=== PATIENT | male | born 1940 | race Caucasian/White ===

== ENCOUNTER 2019-06-07 04:57 | Emergency (ER) | payer MEDICARE, OTHER ==
--- NOTE | 2019-06-07 05:16 | ERPHSYRPT ---
- History of Present Illness Time Seen by Provider: 06/07/19 05:11 Source: patient, family Exam Limitations: no limitations Physician History: pt has 3 day history of pain radiating from his neck down the left arm and several weeks of bilateral neck pain all reproduced by head trning; no trauma; neuro vasc is intact; no CP or sobreath no N/V no diaphoresis no abd pain; Occurred: days ago Method of Injury: unknown Quality: intermittent, sharpness Severity of Pain-Max: moderate Severity of Pain-Current: moderate Extremities Pain Location: shoulder: left, arm: left, other: left (neck) Modifying Factors: Improves With: immobilization, movement Associated Symptoms: neck pain Allergies/Adverse Reactions: etodolac [From Lodine] Allergy (Verified 06/07/19 05:17) Rash diphenhydramine HCl [From Benadryl] Adverse Reaction (Verified 06/07/19 05:17) SEE BUGS Home Medications: Benazepril HCl 10 mg [Lotensin 10 MG] 20 mg PO DAILY 04/11/13 [History] Aspirin 81 gm Chew [Baby Aspirin 81 mg Chew] 81 mg PO DAILY 03/08/14 [ History] Allopurinol 100 mg [Zyloprim 100 mg] 100 mg PO DAILY 06/07/19 [History] Hx Influenza Vaccination/Date Given: (fall 2012) Hx Pneumococcal Vaccination/Date Given: No - Review of Systems Constitutional: No Fever, No Chills Eyes: No Symptoms Ears, Nose, & Throat: No Symptoms Respiratory: No Cough, No Dyspnea Cardiac: No Chest Pain, No Edema, No Syncope Abdominal/Gastrointestinal: No Abdominal Pain, No Nausea, No Vomiting, No Diarrhea Genitourinary Symptoms: No Dysuria Musculoskeletal: No Back Pain, No Neck Pain Skin: No Rash Neurological: No Dizziness, No Focal Weakness, No Sensory Changes Psychological: No Symptoms Endocrine: No Symptoms All Other Systems: Reviewed and Negative - Past Medical History Pertinent Past Medical History: Yes Neurological History: No Pertinent History ENT History: No Pertinent History Cardiac History: Hypertension Respiratory History: No Pertinent History Endocrine Medical History: No Pertinent History Musculoskeletal History: Arthritis GI Medical History: Diverticulosis, Hemorrhoids History: No Pertinent History Psycho-Social History: No Pertinent History Male Reproductive Disorders: No Pertinent History - Past Surgical History Past Surgical History: Yes Neuro Surgical History: No Pertinent History Cardiac: Cardiac Catheterization Respiratory: No Pertinent History Gastrointestinal: Appendectomy, Cholecystectomy Genitourinary: No Pertinent History Musculoskeletal: No Pertinent History Male Surgical History: No Pertinent History Other Surgical History: TOOTH EXTRACTION - Social History Smoking Status: Never smoker Exposure to second hand smoke: No Drug Use: none Patient Lives Alone: No - Nursing Vital Signs Nursing Vital Signs: Initial Vital Signs Temperature 97.4 F 06/07/19 05:02 Pulse Rate 68 06/07/19 05:02 Respiratory Rate 16 06/07/19 05:02 Blood Pressure 150/77 06/07/19 05:02 O2 Sat by Pulse Oximetry 97 06/07/19 05:02 Pain Scale Pain Intensity 7 - Physical Exam General Appearance: alert Eyes, Ears, Nose, Throat Exam: moist mucous membranes Neck Exam: non-tender, supple Cardiovascular/Respiratory Exam: chest non-tender, normal breath sounds, regular rate/rhythm, no respiratory distress Abdominal Exam: non-tender, No guarding Back Exam: normal inspection, decreased range of motion, muscle spasm, other ( neck pain radiating to reporduce left arm pains with motion of newck), No vertebral tenderness Shoulder Exam: normal inspection, non-tender, no evidence of injury, normal ROM Elbow/Forearm Exam: normal inspection, non-tender, no evidence of injury, normal ROM Wrist Exam: normal inspection, non-tender, no evidence of injury, normal ROM Hand Exam: normal inspection, non-tender, no evidence of injury, normal ROM DTR - Upper Extremity Exam: bicep (R): 2+, bicep (L): 2+, tricep (R): 2+, tricep (L): 2+ Neuro/Tendon Exam: normal sensation, normal motor functions Mental Status Exam: alert, oriented x 3, cooperative Skin Exam: normal color, warm, dry - Course Nursing assessment & vital signs reviewed: Yes EKG Interpreted by Me: Left [place] Deviation, NORMAL INTERVALS, Non-specific ST Changes - Radiology Exams Chest X-ray Interpretation: Reviewed by me, Other (calcified aorta) Ordered Tests: Active Orders 24 hr Category Date Time Status CHEST 1 VIEW (PORTABLE) Stat Exams 06/07/19 05:17 Taken CBC W DIFF Stat Lab 06/07/19 05:16 Ordered CMP Stat Lab 06/07/19 05:16 Ordered NT PRO BNP Stat Lab 06/07/19 05:16 Ordered TROPONIN Q3H Lab 06/07/19 05:30 Ordered TROPONIN Q3H Lab 06/07/19 08:30 Ordered TROPONIN Q3H Lab 06/07/19 11:30 Ordered TROPONIN Q3H Lab 06/07/19 14:30 Ordered TROPONIN Q3H Lab 06/07/19 17:30 Ordered Medication Summary Discontinued Medications Generic Name Dose Route Start Last Admin Trade Name Freq PRN Reason Stop Dose Admin Hydrocodone Bitart/Acetaminophen 1 tab 06/07/19 05:18 06/07/19 05:37 [place] 5/325 Mg PO 06/07/19 05:19 1 tab STAT ONE Administration Hydrocodone Bitart/Acetaminophen Confirm 06/07/19 05:32 [place] 5/325 Mg Administered 06/07/19 05:33 Dose 1 tab .ROUTE .STK-MED ONE Orphenadrine Citrate 60 mg 06/07/19 05:24 06/07/19 05:39 Norflex 60 Mg/2 Ml IM 06/07/19 05:25 60 mg STAT ONE Administration Orphenadrine Citrate Confirm 06/07/19 05:32 Norflex 60 Mg/2 Ml Administered 06/07/19 05:33 Dose 60 mg .ROUTE .STK-MED ONE Lab/Rad Data: Laboratory Result Diagrams 06/07/19 05:16 06/07/19 05:16 Laboratory Results 06/07/19 06/07/19 06/07/19 Range/Units 05:30 05:16 05:16 WBC 7.1 (4.0-10.5) K/mm3 RBC 5.33 (4.1-5.6) M/mm3 Hgb 17.4 (12.5-18.0) gm/dl Hct 51.1 H (42-50) % MCV 95.9 (78-100) fl MCH 32.6 H (26-32) pg MCHC 34.1 (32-36) g/dl RDW 14.2 H (11.5-14.0) % Plt Count 263 (150-450) K/mm3 MPV 9.5 (6-9.5) fl Gran % 37.1 (36.0-66.0) % Eos # (Auto) 0.20 (0-0.5) Absolute Lymphs (auto) 3.43 (1.0-4.6) Absolute Monos (auto) 0.79 (0.0-1.3) Lymphocytes % 48.4 H (24.0-44.0) % Monocytes % 11.1 (0.0-12.0) % Eosinophils % 2.8 (0.00-5.0) % Basophils % 0.6 (0.0-0.4) % Absolute Granulocytes 2.63 (1.4-6.9) Basophils # 0.04 (0-0.4) Sodium 137 (137-145) mmol/L Potassium 4.2 (3.5-5.1) mmol/L Chloride 103 (98-107) mmol/L Carbon Dioxide 23 (22-30) mmol/L Anion Gap 14.6 (5-15) MEQ/L BUN 9 (9-20) mg/dL Creatinine 0.83 (0.66-1.25) mg/dL Estimated GFR > 60.0 ML/MIN Glucose 129 H (74-106) mg/dL Calcium 9.0 (8.4-10.2) mg/dL Total Bilirubin 0.80 (0.2-1.3) mg/dL AST 33 (17-59) U/L ALT 20 (0-50) U/L Alkaline Phosphatase 70 (38-126) U/L Troponin I < 0.012 (0.000-0.034) ng/mL NT-Pro-B Natriuret Pep 53.8 (0-1800) pg/mL Serum Total Protein 7.0 (6.3-8.2) g/dL Albumin 4.0 (3.5-5.0) g/dL - Progress Progress: improved, re-examined Progress Note: 06/07/19 06:26 symptoms are relieved by tx , and pt expresses that he is ready for home Counseled pt/family regarding: lab results, diagnosis, need for follow-up - Departure Departure Disposition: Home 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
[2019-06-07] MEDS ORDERED: NORCO 5/325 MG PO ONE (05:18)
[2019-06-07] MEDS ORDERED: Norflex 60 MG/2 ML IM ONE (05:24)
[2019-06-07] MEDS ORDERED: Norflex 60 MG/2 ML ONE (05:32)
[2019-06-07] MEDS ORDERED: NORCO 5/325 MG ONE (05:32)
[2019-06-07 05:35] LABS: BASOPHIL % 0.6 % (0.0-0.4); Basophil (Absolute #) 0.04 (0-0.4); Eosinophil % 2.8 % (0.00-5.0); Granulocyte Absolute (ANC) 2.63 (1.4-6.9); Granulocytes % 37.1 % (36.0-66.0); Hematocrit 51.1 % (42-50); Hemoglobin 17.4 gm/dl (12.5-18.0); Lymphocyte (Absolute #) 3.43 (1.0-4.6); Lymphocytes % 48.4 % (24.0-44.0); Mean Cell Volume 95.9 fl (78-100); Mean Corpuscular Hemoglobin 32.6 pg (26-32); Mean Corpuscular Hgb Concent. 34.1 g/dl (32-36); Mean Platelet Volume 9.5 fl (6-9.5); Monocyte (Absolute #) 0.79 (0.0-1.3); Monocytes % 11.1 % (0.0-12.0); Platelet Count 263 K/mm3 (150-450); Red Blood Count 5.33 M/mm3 (4.1-5.6); Red Cell Distribution Width 14.2 % (11.5-14.0); White Blood Count 7.1 K/mm3 (4.0-10.5)
[2019-06-07 05:56] LABS: ALKALINE PHOSPHATASE 70 U/L (38-126); ANION GAP 14.6 MEQ/L (5-15); BLOOD UREA NITROGEN 9 mg/dL (9-20); CHLORIDE 103 mmol/L (98-107); Carbon Dioxide 23 mmol/L (22-30); Creatinine 1 0.83 mg/dL (0.66-1.25); Glucose 129 mg/dL (74-106); NT PRO BNP 53.8 pg/mL (0-1800); Potassium 4.2 mmol/L (3.5-5.1); SGOT/AST 33 U/L (17-59); SGPT/ALT 20 U/L (0-50); SODIUM 137 mmol/L (137-145)
[2019-06-07 06:37] VITALS: BP 139/73; PULSE 65; O2SAT 99
--- NOTE | 2019-06-07 07:14 | XRAY ---
Indication: Left shoulder/neck/arm pain. Comparison: May 15, 2018. Portable chest again demonstrates right base discoid atelectasis/scarring. Remaining lungs clear. Heart is not enlarged. Descending aorta remains arteriosclerotic and tortuous. Bony thorax intact again with mild degenerative changes. Impression: Stable nonacute chest with chronic features.
== END 2019-06-07 06:39 | disposition home or self-care (01) ==
LOC: ED 04:57
DX: M46.92 Unspecified inflammatory spondylopathy, cervical region (principal); M79.2 Neuralgia and neuritis, unspecified; I10 Essential (primary) hypertension
CPT/HCPCS: 36415; 71045; 80053; 83880; 84484; 85025; 96372; 99284; J2360; A9270-GY

== ENCOUNTER 2020-11-10 05:53 | Emergency (ER) | payer MEDICARE, OTHER ==
[2020-11-10] MEDS ORDERED: BABY ASPIRIN 81 MG CHEW PO ONE (06:27)
[2020-11-10 06:47] LABS: Absolute Neutrophil Ct (ANC) 3.84 (1.4-6.9); BASOPHIL % 0.7 % (0.0-0.4); Basophil (Absolute #) 0.05 (0-0.4); Eosinophil % 4.8 % (0.00-5.0); Eosinophil (Absolute #) 0.35 (0-0.5); Hematocrit 45.8 % (42-50); Hemoglobin 15.1 gm/dl (12.5-18.0); Lymphocyte (Absolute #) 2.29 (1.0-4.6); Lymphocytes % 31.3 % (24.0-44.0); Mean Cell Volume 94.8 fl (78-100); Mean Corpuscular Hemoglobin 31.3 pg (26-32); Mean Platelet Volume 9.6 fl (7.5-11.0); Monocyte (Absolute #) 0.78 (0.0-1.3); Monocytes % 10.7 % (0.0-12.0); Neutrophil % 52.5 % (36.0-66.0); Platelet Count 269 K/mm3 (150-450); Red Blood Count 4.83 M/mm3 (4.1-5.6); Red Cell Distribution Width 13.7 % (11.5-14.0); White Blood Count 7.3 K/mm3 (4.0-10.5)
--- NOTE | 2020-11-10 07:05 | ERPHSYRPT ---
<NATASHA HARRINGTON - Last Filed: 11/10/20 07:00> - History of Present Illness Time Seen by Provider: 11/10/20 06:27 Historian: patient Exam Limitations: no limitations Patient Subjective Stated Complaint: pt c/o chest pain and fall at home Triage Nursing Assessment: pt was asleep and had chest pain on the right side which woke him up, pain radiated to rt jaw and rt shoulder blade. Pt became diaphoretic. Pt got up to take 1 sl ntg and then fell on the floor. Pt denies any injuries from the fall and denies any loc. Pt rated chest pain a 3 when it occured, but was pain free upon arrival to ER. pt in SR. Lungs clear, heart tones reg. Physician History: 80 years old male presented in the ER with chief complaint of chest pain. Patient report he woke up around 4 AM today with chest pain on the right, radiating to right jaw, moderate intensity, took 1 nitro and started to feel dizzy lightheaded but his pain is improving on presentation. Denies any shortness of breath fever chills or cough. Does have intermittent episodes similar to this in the past. No chest pain work-up done in the recent past. Timing/Duration: hour(s) (2), sudden, improved Activities at Onset: rest Quality: aching Location: substernal Severity of Pain-Max: moderate Severity of Pain-Current: mild Modifying Factors: Improves With: nitroglycerin Associated Symptoms: fatigue, dizziness Prior Chest Pain/Cardiac Workup: no prior cardiac workup Nitro Today/Relief: no nitro taken today Aspirin Treatment Today: 81 mg x 4 Allergies/Adverse Reactions: etodolac [From Lodine] Allergy (Verified 11/10/20 06:09) Rash diphenhydramine HCl [From Benadryl] Adverse Reaction (Verified 11/10/20 06:09) SEE BUGS Home Medications: Benazepril HCl 10 mg [Lotensin 10 MG] 20 mg PO DAILY 04/11/13 [History] Allopurinol 100 mg [Zyloprim 100 mg] 100 mg PO DAILY 06/07/19 [History] Nitroglycerin 0.4 mg Tablet [Nitrostat 0.4 MG Tablet] 0.4 mg SL DAILY PRN PRN 11/10/20 [History] Omeprazole 20 mg PO DAILY 11/10/20 [History] Hx Tetanus, Diphtheria Vaccination/Date Given: Yes Hx Influenza Vaccination/Date Given: Yes Hx Pneumococcal Vaccination/Date Given: Yes Immunizations Up to Date: Yes Travel Risk - International Travel Have you traveled outside of the country in past 3 weeks: No - Coronavirus Screening Are you exhibiting any of the following symptoms?: No Close contact with a COVID-19 positive Pt in past 14-21 Days: No - Review of Systems Constitutional: No Symptoms Eyes: No Symptoms Ears, Nose, & Throat: No Symptoms Respiratory: No Symptoms Cardiac: Chest Pain Abdominal/Gastrointestinal: No Symptoms Genitourinary Symptoms: No Symptoms Musculoskeletal: No Symptoms Skin: No Symptoms Neurological: No Symptoms Psychological: No Symptoms Endocrine: No Symptoms Hematologic/Lymphatic: No Symptoms Immunological/Allergic: No Symptoms - Past Medical History Pertinent Past Medical History: Yes Neurological History: No Pertinent History ENT History: No Pertinent History Cardiac History: Hypertension Respiratory History: No Pertinent History Endocrine Medical History: No Pertinent History Musculoskeletal History: Arthritis GI Medical History: Diverticulosis, GERD, Gallbladder Disease, Hemorrhoids History: No Pertinent History Psycho-Social History: No Pertinent History Male Reproductive Disorders: No Pertinent History - Past Surgical History Past Surgical History: Yes Neuro Surgical History: No Pertinent History Cardiac: Cardiac Catheterization Respiratory: No Pertinent History Gastrointestinal: Appendectomy, Cholecystectomy Genitourinary: No Pertinent History Musculoskeletal: No Pertinent History Male Surgical History: No Pertinent History Other Surgical History: TOOTH EXTRACTION - Social History Smoking Status: Former smoker Exposure to second hand smoke: No Drug Use: none Patient Lives Alone: No - Physical Exam General Appearance: no apparent distress, alert Eye Exam: PERRL/EOMI, eyes nml inspection (Dictated better than here but) Ears, Nose, Throat Exam: normal ENT inspection, TMs normal, pharynx normal Neck Exam: normal inspection, non-tender, supple, full range of motion Respiratory Exam: normal breath sounds, lungs clear Cardiovascular Exam: regular rate/rhythm, normal heart sounds Gastrointestinal/Abdomen Exam: soft, normal bowel sounds Back Exam: normal inspection, normal range of motion Extremity Exam: normal inspection Neurologic Exam: alert, oriented x 3, cooperative, tanner rotary drum continuous process II-XII nml as tested, normal mood/affect Skin Exam: normal color SpO2 Interpretation: normal SpO2: 98 O2 Delivery: Room Air - Progress Progress Note: 11/10/20 07:06 Work-up is pending, care is transferred to Dr. Yoon at shift change - Departure Clinical Impression: Chest pain Condition: Stable Referrals: HENRY DORAN [Primary Care Provider] - Instructions: Angina (DC), Chest Pain (DC) Additional Instructions: Dr. Doran tomorrow 11/11/20 9:00AM Return to ER for for chest pain or shortness of breath <WILFREDO PADGETT - Last Filed: 11/10/20 12:45> - Nursing Vital Signs Nursing Vital Signs: Initial Vital Signs Temperature 97.5 F 11/10/20 05:57 Pulse Rate 64 11/10/20 05:57 Respiratory Rate 18 11/10/20 05:57 Blood Pressure 127/72 11/10/20 05:57 O2 Sat by Pulse Oximetry 98 11/10/20 05:57 Pain Scale Pain Intensity 0 - Course EKG Interpreted by Me: RATE (Sinus linh/LAFB/Low voltage-Poor R wave progression/Normal QT-QTc/IRBBB) Ordered Tests: Active Orders 24 hr Category Date Time Status Director Call Center Sales STAT Care 11/10/20 06:28 Completed EKG-ER Only STAT Care 11/10/20 06:27 Completed IV Insertion STAT Care 11/10/20 06:27 Completed CHEST 1 VIEW (PORTABLE) Stat Exams 11/10/20 06:28 Completed CBC W DIFF Stat Lab 11/10/20 06:40 Completed CMP Stat Lab 11/10/20 06:40 Completed NT PRO BNP Stat Lab 11/10/20 06:40 Completed TROPONIN Q3H Lab 11/10/20 06:40 Completed TROPONIN Q3H Lab 11/10/20 09:30 Completed Medication Summary Discontinued Medications Generic Name Dose Route Start Last Admin Trade Name Freq PRN Reason Stop Dose Admin Aspirin 324 mg 11/10/20 06:27 11/10/20 06:53 Baby Aspirin 81 Mg Chew PO 11/10/20 06:28 Not Given STAT ONE Lab/Rad Data: Laboratory Result Diagrams 11/10/20 06:40 11/10/20 06:40 Laboratory Results 11/10/20 11/10/20 11/10/20 Range/Units 09:30 06:40 06:40 WBC (4.0-10.5) K/mm3 RBC (4.1-5.6) M/mm3 Hgb (12.5-18.0) gm/dl Hct (42-50) % MCV (78-100) fl MCH (26-32) pg MCHC (32-36) g/dl RDW (11.5-14.0) % Plt Count (150-450) K/mm3 MPV (7.5-11.0) fl Gran % (36.0-66.0) % Eos # (Auto) (0-0.5) Absolute Lymphs (auto) (1.0-4.6) Absolute Monos (auto) (0.0-1.3) Lymphocytes % (24.0-44.0) % Monocytes % (0.0-12.0) % Eosinophils % (0.00-5.0) % Basophils % (0.0-0.4) % Absolute Granulocytes (1.4-6.9) Basophils # (0-0.4) Sodium 135 L (137-145) mmol/L Potassium 4.4 (3.5-5.1) mmol/L Chloride 103 (98-107) mmol/L Carbon Dioxide 26 (22-30) mmol/L Anion Gap 11.0 (5-15) MEQ/L BUN 10 (9-20) mg/dL Creatinine 1.02 (0.66-1.25) mg/dL Estimated GFR > 60.0 ML/MIN Glucose 151 H (74-106) mg/dL Calcium 8.8 (8.4-10.2) mg/dL Total Bilirubin 0.60 (0.2-1.3) mg/dL AST 25 (17-59) U/L ALT 20 (0-50) U/L Alkaline Phosphatase 72 (38-126) U/L Troponin I < 0.012 < 0.012 (0.000-0.034) ng/mL NT-Pro-B Natriuret Pep 43.4 (0-1800) pg/mL Serum Total Protein 6.2 L (6.3-8.2) g/dL Albumin 3.5 (3.5-5.0) g/dL 11/10/20 Range/Units 06:40 WBC 7.3 (4.0-10.5) K/mm3 RBC 4.83 (4.1-5.6) M/mm3 Hgb 15.1 (12.5-18.0) gm/dl Hct 45.8 (42-50) % MCV 94.8 (78-100) fl MCH 31.3 (26-32) pg MCHC 33.0 (32-36) g/dl RDW 13.7 (11.5-14.0) % Plt Count 269 (150-450) K/mm3 MPV 9.6 (7.5-11.0) fl Gran % 52.5 (36.0-66.0) % Eos # (Auto) 0.35 (0-0.5) Absolute Lymphs (auto) 2.29 (1.0-4.6) Absolute Monos (auto) 0.78 (0.0-1.3) Lymphocytes % 31.3 (24.0-44.0) % Monocytes % 10.7 (0.0-12.0) % Eosinophils % 4.8 (0.00-5.0) % Basophils % 0.7 (0.0-0.4) % Absolute Granulocytes 3.84 (1.4-6.9) Basophils # 0.05 (0-0.4) Sodium (137-145) mmol/L Potassium (3.5-5.1) mmol/L Chloride (98-107) mmol/L Carbon Dioxide (22-30) mmol/L Anion Gap (5-15) MEQ/L BUN (9-20) mg/dL Creatinine (0.66-1.25) mg/dL Estimated GFR ML/MIN Glucose (74-106) mg/dL Calcium (8.4-10.2) mg/dL Total Bilirubin (0.2-1.3) mg/dL AST (17-59) U/L ALT (0-50) U/L Alkaline Phosphatase (38-126) U/L Troponin I (0.000-0.034) ng/mL NT-Pro-B Natriuret Pep (0-1800) pg/mL Serum Total Protein (6.3-8.2) g/dL Albumin (3.5-5.0) g/dL - Progress Progress: improved Progress Note: 11/10/20 07:41 Assumed care at 7:00AM of 80 yo wm w R sub-sternal chest pain w radiation to neck which woke pt up at 4:30 AM. Pain accompanied by diaphoresis/N/dyspnea/dizziness. Pt has a h/o HTN/tobacco use >20yrs in the past. DM/hyperlipidemia were denied. He denies CAD/NC/Cath/stents/CABG. Pt alert and oriented x3/LLungs CTA/Heart RRRwo M/Abdomen soft, nttp/Initial trop neg/EKG sinus linh, low voltage,LAFB, IRBBB, Normal QT-QTc. Pt took 1 SL NTG at home w relief. He was given 324 po ASA in ER. Pain is 0 at this time. 11/10/20 10:55 Pt w neg trop x2/no acute EKG changes/No chest pain during ER stay/Pt refuses inpt-obs stay for workup, risks explained/Spoke w Dr. Doran, will see pt at 9:00AM 11/11/20. Pt ok w plan. Discussed with : Michelle Counseled pt/family regarding: lab results, diagnosis, need for follow-up, rad results - Departure Departure Disposition: Home Critical Care Time: No
[2020-11-10 07:18] LABS: ALBUMIN 3.5 g/dL (3.5-5.0); ALKALINE PHOSPHATASE 72 U/L (38-126); BLOOD UREA NITROGEN 10 mg/dL (9-20); CHLORIDE 103 mmol/L (98-107); Calcium 8.8 mg/dL (8.4-10.2); Carbon Dioxide 26 mmol/L (22-30); Creatinine 1 1.02 mg/dL (0.66-1.25); EST GLOMERULAR FILTRATION RATE > 60.0 ML/MIN; Glucose 151 mg/dL (74-106); NT PRO BNP 43.4 pg/mL (0-1800); Potassium 4.4 mmol/L (3.5-5.1); SGOT/AST 25 U/L (17-59); SGPT/ALT 20 U/L (0-50); SODIUM 135 mmol/L (137-145); Total Protein 6.2 g/dL (6.3-8.2)
--- NOTE | 2020-11-10 09:21 | XRAY ---
Indication: Chest pain. Comparison: June 07, 2019. Portable chest unchanged again demonstrating minimal right base discoid atelectasis/scarring. Remaining heart and lungs unremarkable again with incidental tortuous descending aorta. Bony thorax intact with mild degenerative changes. Impression: Continued nonacute chest with chronic features.
[2020-11-10 10:09] VITALS: BP 128/73; PULSE 67; O2SAT 98
== END 2020-11-10 11:02 | disposition home or self-care (01) ==
LOC: ED 05:53
DX: R07.89 Other chest pain (principal); R53.83 Other fatigue; Z79.899 Other long term (current) drug therapy; I10 Essential (primary) hypertension
CPT/HCPCS: 36000; 36415; 71045; 80053; 83880; 84484; 85025; 93005; 93041; 99284

== ENCOUNTER 2023-03-14 09:07 | Emergency (ER) | payer MEDICARE, OTHER ==
[2023-03-14 09:28] VITALS: BP 112/79; PULSE 88; O2SAT 96
--- NOTE | 2023-03-14 09:52 | ERPHSYRPT ---
- History of Present Illness Time Seen by Provider: 03/14/23 09:49 Source: patient Patient Subjective Stated Complaint: Pt had been constipated and he took 3 Ducolax and he went to the restroom and had a bowel movement and then went out on the tractor and states that "something is hanging out of his back end that isn't supposed to be", pt states that it has been this way prior to this for several days Triage Nursing Assessment: Pt brought to the ER by his son, ina magana, rates pain/pressure as 3/10, pt has had the feeling that something was hanging out of his rectum for several days but now it is uncomfortable for him to sit, pulses normal, skin n/w/d, doesn't appear to be in any distress Physician History: Patient is an 82-year-old male presents to our ED for evaluation and treatment of rectal pain. Patient has a history of external hemorrhoids. Patient states he has been constipated. Patient unable to have a bowel movement took 3 Dulcolax. Patient went to have a bowel movement. Patient passed stool but as he was bearing down he felt "something come out of his rectum". Patient has some rectal pain. No trauma. No fever. No abdominal pain. No vomiting. Symptoms are mild to moderate in intensity. Pain rated 3 out of 10. Patient otherwise feels well. Son at bedside. They voiced no other complaints or concerns at this time. Portions of this note were created with voice recognition technology. There may be grammatical, spelling, punctuation or sound alike errors Timing/Duration: today Severity: mild Modifying Factors: Improves With: nothing Associated Symptoms: denies symptoms Allergies/Adverse Reactions: etodolac [From Lodine] Allergy (Verified 01/29/23 12:36) Rash diphenhydramine HCl [From Benadryl] Adverse Reaction (Verified 03/14/23 09:28) SEE BUGS Home Medications: Benazepril HCl [Lotensin 10 MG] 5 mg PO DAILY 04/11/13 [History] Allopurinol 100 mg [Zyloprim 100 mg] 100 mg PO DAILY 06/07/19 [History] Nitroglycerin 0.4 mg Tablet [Nitrostat 0.4 MG Tablet] 0.4 mg SL DAILY PRN PRN 11/10/20 [History] Omeprazole 20 mg PO DAILY 11/10/20 [History] Atorvastatin Calcium [Lipitor] 40 mg PO DAILY 01/22/23 [History] Isosorbide Mononitrate [Isosorbide Mononitrate ER] 30 mg PO DAILY 01/22/23 [History] Metformin HCl 500 mg [Glucophage 500 MG] 500 mg PO BIDWM 01/22/23 [History] Thiamine Mononitrate (Vit B1) [Vitamin B-1] 100 mg PO DAILY 01/22/23 [History] Allopurinol 300 mg [Zyloprim 300 mg] 300 mg PO DAILY 01/29/23 [History] Duloxetine HCl 20 mg PO DAILY 01/29/23 [History] Hx Tetanus, Diphtheria Vaccination/Date Given: Yes Hx Influenza Vaccination/Date Given: Yes Hx Pneumococcal Vaccination/Date Given: Yes Travel Risk - International Travel Have you traveled outside of the country in past 3 weeks: No - Coronavirus Screening Are you exhibiting any of the following symptoms?: No Close contact with a COVID-19 positive Pt in past 14-21 Days: No - Vaccine Status Have you recieved a Covid-19 vaccination: Yes Marketing Production Manager: [employer] - Vaccination Dates Date of 2cond Vaccination (if applicable): 2020 - Review of Systems Constitutional: No Symptoms, No Fever, No Chills Eyes: No Symptoms Ears, Nose, & Throat: No Symptoms Respiratory: No Symptoms, No Cough, No Dyspnea Cardiac: No Symptoms, No Chest Pain, No Edema, No Syncope Abdominal/Gastrointestinal: No Symptoms, No Abdominal Pain, No Nausea, No Vomiting, No Diarrhea Genitourinary Symptoms: No Symptoms, No Dysuria Musculoskeletal: No Symptoms, No Back Pain, No Neck Pain Skin: No Symptoms, No Rash Neurological: No Symptoms, No Dizziness, No Focal Weakness, No Sensory Changes Psychological: No Symptoms Endocrine: No Symptoms Hematologic/Lymphatic: No Symptoms Immunological/Allergic: No Symptoms All Other Systems: Reviewed and Negative - Past Medical History Pertinent Past Medical History: Yes Neurological History: No Pertinent History ENT History: No Pertinent History Cardiac History: Angina, High Cholesterol, Hypertension Respiratory History: No Pertinent History Endocrine Medical History: Diabetes Type II Musculoskeletal History: Arthritis GI Medical History: Diverticulosis, GERD, Gallbladder Disease, Hemorrhoids History: No Pertinent History Psycho-Social History: No Pertinent History Male Reproductive Disorders: No Pertinent History - Past Surgical History Past Surgical History: Yes Neuro Surgical History: No Pertinent History Cardiac: Cardiac Catheterization Respiratory: No Pertinent History Gastrointestinal: Appendectomy, Cholecystectomy Genitourinary: No Pertinent History Musculoskeletal: No Pertinent History Male Surgical History: No Pertinent History Other Surgical History: TOOTH EXTRACTION - Social History Smoking Status: Former smoker Exposure to second hand smoke: No Drug Use: none Patient Lives Alone: Yes - Nursing Vital Signs Nursing Vital Signs: Initial Vital Signs Temperature 96.8 F 03/14/23 09:14 Pulse Rate 88 03/14/23 09:14 Blood Pressure 112/79 03/14/23 09:14 O2 Sat by Pulse Oximetry 96 03/14/23 09:14 Pain Scale Pain Intensity 3 - Physical Exam General Appearance: no apparent distress, alert Eye Exam: PERRL/EOMI, eyes nml inspection Ears, Nose, Throat Exam: normal ENT inspection, moist mucous membranes Neck Exam: normal inspection, non-tender, full range of motion Respiratory Exam: airway intact, No respiratory distress, No stridor Cardiovascular Exam: regular rate/rhythm Gastrointestinal/Abdomen Exam: soft, normal bowel sounds, No tenderness, No mass Rectal Exam: other (Rectal prolapse, external hemorrhoid) Back Exam: normal inspection, normal range of motion, No CVA tenderness, No vertebral tenderness Extremity Exam: normal inspection, normal range of motion, pelvis stable Neurologic Exam: alert, oriented x 3, cooperative, normal mood/affect, sensation nml, No motor deficits Skin Exam: normal color, warm, dry, No rash Lymphatic Exam: No adenopathy SpO2 Interpretation: normal SpO2: 96 O2 Delivery: Room Air - Course Nursing assessment & vital signs reviewed: Yes - Progress Progress: improved Progress Note: Patient is a 82-year-old male with a history of constipation presents to our ED with a rectal prolapse and external hemorrhoid. The rectal prolapse was reduced. Lubricating jelly was used to reduce the rectal prolapse. Patient tolerated procedure well. No complications. Pain improved. Patient resting comfortably. Patient referred to general surgery for follow-up. We contacted the [facility] office. We scheduled an appointment for March 18 at 10:10 AM. Address is [address] [place] [address] Patient agrees to follow-up as planned. Complexity of problem addressed is low, acute uncomplicated Critical care time Complexity of data reviewed and analyzed is none. No specialized testing ordered. Diagnosis made based on history and physical examination. Risk of complication and or risk morbidity/mortality is minimal. Rectal prolapse manually reduced. Patient tolerated procedure well. Patient declined medication. No medication provided otherwise. No social determinants of health present to impede follow-up. Patient has good family support. Patient at bedside. We discussed modifications in diet to minimize constipation. Increase fiber, appropriate laxative use. vital stable. Discharge diagnosis is rectal prolapse and sternal hemorrhoid. Portions of this note were created with voice recognition technology. There may be grammatical, spelling, punctuation or sound alike errors 03/14/23 09:54 Counseled pt/family regarding: diagnosis, need for follow-up - Departure Departure Disposition: Home Clinical Impression: Rectal prolapse, External hemorrhoid Condition: Stable Critical Care Time: No Referrals: HENRY DORAN [Primary Care Provider] - Follow up/PCP as directed [facility] [ACTIVE STAFF] - Follow up/PCP as directed Additional Instructions: Discharge/Care Plan EFRA BILLINGS was seen on 03/14/23 in the Emergency Room. The patient was counseled regarding Diagnosis,Lab results, Imaging studies, need for follow up and when to return to the Emergency Room. Prescriptions given: Discharge Note I have spoken with the patient and/or caregivers. I have explained the patient's condition, diagnosis and treatment plan based on the information available to me at this time. I have answered the patient's and/or caregiver's questions and addressed any concerns. The patient and/or caregivers have as good understanding of the patient's diagnosis, condition and treatment plan as can be expected at this point. The vital signs have been stable. The patient's condition is stable and appropriate for discharge from the emergency department. The patient will pursue further outpatient evaluation with the primary care physician or other designated or consulting physician as outlined in the discharge instructions. The patient and/or caregivers are agreeable to this plan of care and follow-up instructions have been explained in detail. The patient and/or caregivers have received these instruction. The patient/and or caregivers are aware that any significant change in condition or worsening of symptoms should prompt an immediate return to this or the closest emergency department or call 911.
== END 2023-03-14 09:56 | disposition home or self-care (01) ==
LOC: ED 09:07
DX: K62.3 Rectal prolapse (principal); K64.4 Residual hemorrhoidal skin tags; K62.89 Other specified diseases of anus and rectum; E78.5 Hyperlipidemia, unspecified; I10 Essential (primary) hypertension; E11.9 Type 2 diabetes mellitus without complications; Z79.84 Long term (current) use of oral hypoglycemic drugs; Z79.899 Other long term (current) drug therapy
CPT/HCPCS: 99281

== ENCOUNTER 2023-08-25 14:58 | Emergency (ER) | payer MEDICARE, OTHER ==
[2023-08-25] MEDS ORDERED: BABY ASPIRIN 81 MG CHEW PO ONE (15:15)
--- NOTE | 2023-08-25 15:15 | ERPHSYRPT ---
- History of Present Illness Time Seen by Provider: 08/25/23 15:00 Source: patient, family Exam Limitations: clinical condition Physician History: The patient presented with a sudden onset of confusion, which was noticed by a family member when the patient had difficulty starting their vehicle. The patient reported no other deficits besides the confusion. 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 The patient has had a recent evaluation of their heart, which showed no issues. The patient mentioned experiencing a headache that started the night before the confusion began. They did not report any weakness, trouble walking, or trouble talking. The patient denied any issues with urination, such as burning or changes in frequency, and has no known history of urinary tract infections. They also denied any abdominal or chest pain and did not report any difficulty breathing. In summary, the patient experienced a sudden onset of confusion accompanied by a headache that started the previous night. The patient has a history of possible mini-strokes but no other significant medical issues. The patient denied any other symptoms or deficits besides the confusion and headache. Timing/Duration: today Severity: mild Character of Deficits: other (confusion) Deficits: no difficulties Baseline/Normal Cognition: alert oriented x 3 Current Cognition: alert oriented x 3 Baseline Gait: walks w/o assistance Associated Symptoms: confusion, headache, No fatigue, No fever, No chills, No loss of consciousness, No nausea, No vomiting, No weakness, No numbness/tingling in legs/feet, No paresthesia, No ringing in ears, No seizures, No slurred speech, No trouble walking, No vision changes, No chest pain Allergies/Adverse Reactions: etodolac [From Lodine] Allergy (Verified 08/25/23 15:25) Rash diphenhydramine HCl [From Benadryl] Adverse Reaction (Verified 08/25/23 15:25) SEE BUGS Home Medications: Benazepril HCl [Lotensin 10 MG] 5 mg PO DAILY 04/11/13 [History] Allopurinol 100 mg [Zyloprim 100 mg] 100 mg PO DAILY 06/07/19 [History] Omeprazole 20 mg PO DAILY 11/10/20 [History] Isosorbide Mononitrate [Isosorbide Mononitrate ER] 30 mg PO DAILY 01/22/23 [History] Duloxetine HCl 30 mg PO DAILY 01/29/23 [History] Aspirin 81 gm Chew [Baby Aspirin 81 mg Chew] 81 mg PO DAILY 08/25/23 [History] Clopidogrel Bisulfate [Clopidogrel] 75 mg PO DAILY 08/25/23 [History] Hx Tetanus, Diphtheria Vaccination/Date Given: Yes Hx Influenza Vaccination/Date Given: Yes Hx Pneumococcal Vaccination/Date Given: Yes Travel Risk - Vaccine Status Have you recieved a Covid-19 vaccination: Yes Elderly Companion: [employer] - Vaccination Dates Date of 2cond Vaccination (if applicable): 2020 - Review of Systems All Other Systems: Reviewed and Negative (As per HPI) - Past Medical History Pertinent Past Medical History: Yes Neurological History: Stroke, TIA, Other ENT History: No Pertinent History Cardiac History: Other Respiratory History: No Pertinent History Endocrine Medical History: No Pertinent History Musculoskeletal History: Osteoarthritis GI Medical History: Diverticulosis, GERD, Gallbladder Disease, Hemorrhoids History: No Pertinent History Psycho-Social History: No Pertinent History Male Reproductive Disorders: No Pertinent History Other Medical History: CHAMBERS AT TIMES, HAS A HEART DOCTOR. - Past Surgical History Past Surgical History: Yes Neuro Surgical History: No Pertinent History Cardiac: Cardiac Catheterization Respiratory: No Pertinent History Gastrointestinal: Appendectomy, Cholecystectomy Genitourinary: No Pertinent History Musculoskeletal: No Pertinent History Male Surgical History: No Pertinent History Other Surgical History: TOOTH EXTRACTION - Social History Smoking Status: Former smoker Exposure to second hand smoke: No Drug Use: none Patient Lives Alone: Yes - Nursing Vital Signs Nursing Vital Signs: Initial Vital Signs Temperature 96.6 F 08/25/23 15:00 Pulse Rate 69 08/25/23 15:00 Respiratory Rate 22 08/25/23 15:00 Blood Pressure 179/94 08/25/23 15:00 O2 Sat by Pulse Oximetry 98 08/25/23 15:00 Pain Scale Pain Intensity 0 - Inga Coma Scale Best Eye Response (Inga): (4) open spontaneously Best Verbal Response ([place]): (5) oriented Best Motor Response (Inga): (6) obeys commands [place] Total: 15 - Physical Exam General Appearance: no apparent distress Eye Exam: bilateral eye: normal inspection, PERRL, EOMI Ears, Nose, Throat Exam: normal ENT inspection Neck Exam: normal inspection, non-tender, supple, full range of motion Respiratory: normal breath sounds, lungs clear, airway intact, No respiratory distress Cardiovascular: regular rate/rhythm, murmur, capillary refill <2 sec, No edema Gastrointestinal: soft, No tenderness, No distention Extremity Exam: normal inspection, No swelling, No tenderness Peripheral Pulses: carotid (R): 2+, carotid (L): 2+, dorsalis-pedis (R): 2+, dorsalis-pedis (L): 2+ Mental Status: alert, oriented x 3, cooperative community services officer Exam: normal hearing, normal speech, PERRL, tongue midline Coordination/Gait: normal finger to nose, normal gait, normal cerebellar function Motor/Sensory: no motor deficit, no sensory deficit, no pronator drift, negative Babinski's sign DTR: knee (R): 2+, knee (L): 2+ Skin Exam: normal color, warm, dry, No rash SpO2 Interpretation: normal O2 Delivery: Room Air - Course Nursing assessment & vital signs reviewed: Yes EKG Interpreted by Me: RATE (60), Sinus Rhythm, NORMAL INTERVALS, NORMAL QRS, NORMAL ST-T - CT Exams Head CT Interpretation: Negative, Tele-radiologist Report Ordered Tests: Medication Summary Discontinued Medications Generic Name Dose Route Start Last Admin Trade Name Glennq PRN Reason Stop Dose Admin Acetaminophen 500 mg 08/25/23 15:16 08/25/23 15:24 Acetaminophen 500 Mg Tablet PO 08/25/23 15:17 500 mg STAT STA Administration Acetaminophen Confirm 08/25/23 15:23 Acetaminophen 500 Mg Tablet Administered 08/25/23 15:24 Dose 500 mg .ROUTE .STK-MED ONE Aspirin 81 mg 08/25/23 15:15 08/25/23 15:24 Aspirin 81 Mg Tab.Chew PO 08/25/23 15:16 81 mg STAT ONE Administration Aspirin Confirm 08/25/23 15:23 Aspirin 81 Mg Tab.Chew Administered 08/25/23 15:24 Dose 81 mg .ROUTE .STK-MED ONE Sodium Chloride 1,000 mls @ 999 mls/hr 08/25/23 17:18 08/25/23 17:29 Sodium Chloride 0.9% 1000 Ml IV 08/25/23 18:18 999 mls/hr .Q1H1M STA Administration Sodium Chloride Confirm 08/25/23 17:28 Sodium Chloride 0.9% 1000 Ml Administered 08/25/23 17:29 Dose 1,000 mls @ ud .ROUTE .[facility] ONE Lab/Rad Data: Laboratory Result Diagrams 08/25/23 15:25 08/25/23 15:25 Laboratory Results 08/25/23 08/25/23 08/25/23 Range/Units 17:14 16:15 15:25 WBC (4.0-10.5) x10^3/uL RBC (4.1-5.6) x10^6/uL Hgb (12.5-18.0) g/dL Hct (42-50) % MCV (78-100) fL MCH (26-32) pg MCHC (32-36) g/dL RDW (11.5-14.0) % Plt Count (150-450) x10^3/uL MPV (7.5-11.0) fL Gran % (36.0-66.0) % Immature Gran % (Auto) (0.00-0.4) % Nucleat RBC Rel Count (0.00-0.1) % Eos # (Auto) (0-0.5) x10^3/uL Immature Gran # (Auto) (0.00-0.03) x10^3u/L Absolute Lymphs (auto) (1.0-4.6) x10^3/uL Absolute Monos (auto) (0.0-1.3) x10^3/uL Absolute Nucleated RBC (0.00-0.01) x10^3u/L Lymphocytes % (24.0-44.0) % Monocytes % (0.0-12.0) % Eosinophils % (0.00-5.0) % Basophils % (0.0-0.4) % Absolute Granulocytes (1.4-6.9) x10^3/uL Basophils # (0-0.4) x10^3/uL PT (9.4-12.5) SECONDS INR (0.8-3.0) APTT (25.1-36.5) SECONDS Sodium (137-145) mmol/L Potassium (3.5-5.1) mmol/L Chloride (98-107) mmol/L Carbon Dioxide (22-30) mmol/L Anion Gap (5-15) MEQ/L BUN (9-20) mg/dL Creatinine (0.66-1.25) mg/dL Estimated GFR ML/MIN Glucose (74-106) mg/dL Hemoglobin A1c 6.48 H (4.5-6.0) % Lactic Acid 3.0 H (0.4-2.0) Calcium (8.4-10.2) mg/dL Total Bilirubin (0.2-1.3) mg/dL AST (17-59) U/L ALT (0-50) U/L Alkaline Phosphatase (38-126) U/L Troponin I (0.000-0.034) ng/mL Serum Total Protein (6.3-8.2) g/dL Albumin (3.5-5.0) g/dL Triglycerides (30-150) mg/dL Cholesterol (50-200) mg/dL LDL Cholesterol (30-100) mg/dL HDL Cholesterol (40-60) mg/dL Heart Disease Risk Ratio Urine Color Yellow (Yellow) Urine Appearance Clear (Clear) Urine pH 5.5 (4.6-8.0) Ur Specific [place] 1.020 (1.005-1.030) Urine Protein Negative (Negative) Urine Glucose (UA) Negative (Negative) mg/dL Urine Ketones Negative (Negative) Urine Blood Negative (Negative) Urine Nitrite Negative (Negative) Urine Bilirubin Negative (Negative) Urine Urobilinogen 0.2 (0.2) mg/dL Ur Leukocyte Esterase Negative (Negative) U Hyaline Cast (Auto) NONE SEEN (0-2) /LPF Urine Microscopic RBC 0-2 (0-5) /HPF Urine Microscopic WBC 0-2 (0-5) /HPF Ur Epithelial Cells None Seen (None Seen) /HPF Urine Bacteria None Seen (None Seen) /HPF Urine Culture Reflexed NO (NO) 08/25/23 08/25/23 08/25/23 Range/Units 15:25 15:25 15:25 WBC (4.0-10.5) x10^3/uL RBC (4.1-5.6) x10^6/uL Hgb (12.5-18.0) g/dL Hct (42-50) % MCV (78-100) fL MCH (26-32) pg MCHC (32-36) g/dL RDW (11.5-14.0) % Plt Count (150-450) x10^3/uL MPV (7.5-11.0) fL Gran % (36.0-66.0) % Immature Gran % (Auto) (0.00-0.4) % Nucleat RBC Rel Count (0.00-0.1) % Eos # (Auto) (0-0.5) x10^3/uL Immature Gran # (Auto) (0.00-0.03) x10^3u/L Absolute Lymphs (auto) (1.0-4.6) x10^3/uL Absolute Monos (auto) (0.0-1.3) x10^3/uL Absolute Nucleated RBC (0.00-0.01) x10^3u/L Lymphocytes % (24.0-44.0) % Monocytes % (0.0-12.0) % Eosinophils % (0.00-5.0) % Basophils % (0.0-0.4) % Absolute Granulocytes (1.4-6.9) x10^3/uL Basophils # (0-0.4) x10^3/uL PT 10.0 (9.4-12.5) SECONDS INR 0.91 (0.8-3.0) APTT 25.0 L (25.1-36.5) SECONDS Sodium 137 (137-145) mmol/L Potassium 4.4 (3.5-5.1) mmol/L Chloride 101 (98-107) mmol/L Carbon Dioxide 29 (22-30) mmol/L Anion Gap 11.9 (5-15) MEQ/L BUN 13 (9-20) mg/dL Creatinine 1.05 (0.66-1.25) mg/dL Estimated GFR > 60.0 ML/MIN Glucose 134 H (74-106) mg/dL Hemoglobin A1c (4.5-6.0) % Lactic Acid (0.4-2.0) Calcium 9.2 (8.4-10.2) mg/dL Total Bilirubin 0.50 (0.2-1.3) mg/dL AST 26 (17-59) U/L ALT 22 (0-50) U/L Alkaline Phosphatase 72 (38-126) U/L Troponin I < 0.012 (0.000-0.034) ng/mL Serum Total Protein 7.2 (6.3-8.2) g/dL Albumin 4.3 (3.5-5.0) g/dL Triglycerides 231 H (30-150) mg/dL Cholesterol 224 H (50-200) mg/dL LDL Cholesterol 140 H (30-100) mg/dL HDL Cholesterol 56 (40-60) mg/dL Heart Disease Risk Ratio 4.0 Urine Color (Yellow) Urine Appearance (Clear) Urine pH (4.6-8.0) Ur Specific [place] (1.005-1.030) Urine Protein (Negative) Urine Glucose (UA) (Negative) mg/dL Urine Ketones (Negative) Urine Blood (Negative) Urine Nitrite (Negative) Urine Bilirubin (Negative) Urine Urobilinogen (0.2) mg/dL Ur Leukocyte Esterase (Negative) U Hyaline Cast (Auto) (0-2) /LPF Urine Microscopic RBC (0-5) /HPF Urine Microscopic WBC (0-5) /HPF Ur Epithelial Cells (None Seen) /HPF Urine Bacteria (None Seen) /HPF Urine Culture Reflexed (NO) 08/25/23 Range/Units 15:25 WBC 8.1 (4.0-10.5) x10^3/uL RBC 5.33 (4.1-5.6) x10^6/uL Hgb 16.5 (12.5-18.0) g/dL Hct 49.3 (42-50) % MCV 92.5 (78-100) fL MCH 31.0 (26-32) pg MCHC 33.5 (32-36) g/dL RDW 13.5 (11.5-14.0) % Plt Count 325 (150-450) x10^3/uL MPV 9.1 (7.5-11.0) fL Gran % 54.7 (36.0-66.0) % Immature Gran % (Auto) 0.2 (0.00-0.4) % Nucleat RBC Rel Count 0.0 (0.00-0.1) % Eos # (Auto) 0.17 (0-0.5) x10^3/uL Immature Gran # (Auto) 0.02 (0.00-0.03) x10^3u/L Absolute Lymphs (auto) 2.64 (1.0-4.6) x10^3/uL Absolute Monos (auto) 0.77 (0.0-1.3) x10^3/uL Absolute Nucleated RBC 0.00 (0.00-0.01) x10^3u/L Lymphocytes % 32.6 (24.0-44.0) % Monocytes % 9.5 (0.0-12.0) % Eosinophils % 2.1 (0.00-5.0) % Basophils % 0.9 (0.0-0.4) % Absolute Granulocytes 4.43 (1.4-6.9) x10^3/uL Basophils # 0.07 (0-0.4) x10^3/uL PT (9.4-12.5) SECONDS INR (0.8-3.0) APTT (25.1-36.5) SECONDS Sodium (137-145) mmol/L Potassium (3.5-5.1) mmol/L Chloride (98-107) mmol/L Carbon Dioxide (22-30) mmol/L Anion Gap (5-15) MEQ/L BUN (9-20) mg/dL Creatinine (0.66-1.25) mg/dL Estimated GFR ML/MIN Glucose (74-106) mg/dL Hemoglobin A1c (4.5-6.0) % Lactic Acid (0.4-2.0) Calcium (8.4-10.2) mg/dL Total Bilirubin (0.2-1.3) mg/dL AST (17-59) U/L ALT (0-50) U/L Alkaline Phosphatase (38-126) U/L Troponin I (0.000-0.034) ng/mL Serum Total Protein (6.3-8.2) g/dL Albumin (3.5-5.0) g/dL Triglycerides (30-150) mg/dL Cholesterol (50-200) mg/dL LDL Cholesterol (30-100) mg/dL HDL Cholesterol (40-60) mg/dL Heart Disease Risk Ratio Urine Color (Yellow) Urine Appearance (Clear) Urine pH (4.6-8.0) Ur Specific [place] (1.005-1.030) Urine Protein (Negative) Urine Glucose (UA) (Negative) mg/dL Urine Ketones (Negative) Urine Blood (Negative) Urine Nitrite (Negative) Urine Bilirubin (Negative) Urine Urobilinogen (0.2) mg/dL Ur Leukocyte Esterase (Negative) U Hyaline Cast (Auto) (0-2) /LPF Urine Microscopic RBC (0-5) /HPF Urine Microscopic WBC (0-5) /HPF Ur Epithelial Cells (None Seen) /HPF Urine Bacteria (None Seen) /HPF Urine Culture Reflexed (NO) - Progress Progress: improved Progress Note: The patient suffered an episode of altered mental status, but there is no overt concern for a dangerous emergent cause such as, but not limited to, AIR DEFENSE CONTROL OFFICER infection, severe Toxidrome, severe metabolic derangement, or stroke. Given History, Physical, and Workup the cause appears to be dehydration and early dementia. UA shows no signs of infection. No infection, anemia or electrolyte derangement found on labs. Lactate was mildly elevated at 3 so NS bolus was given and PO fluids encouraged. Stable Continue antiplatelet Lipid panel elevated today, but unable to tolerate statin tx. Recommended discussing alternative tx options. Optimal BP and glycemic control (A1c 6.4 today) Disposition: Discharge. At the time of discharge, the patient is back to baseline mental status. Counseled pt/family regarding: lab results, diagnosis, need for follow-up, rad results Medical Desision Making - Independent Historian Additional History obtained from: Child - Diagnostic Testing Diagnostic test were ordered, analyzed, and reviewed by me: Yes Radiological Interpretation: Interpreted by me, Reviewed by me, Teleradiologist Report - Risk of complications The pt has a mod risk of morbidity or mortality based on: Need for prescription drug management - Departure Departure Disposition: Home Clinical Impression: Hyperlipemia, Confusion and disorientation, Dehydration, Cerebral microvascular disease Condition: Good Critical Care Time: No Referrals: HENRY DORAN [Primary Care Provider] - Follow up/PCP as directed Instructions: Delirium (Confusion) (DC), Dementia (DC)
[2023-08-25] MEDS ORDERED: TYLENOL EXTRA STRENGTH 500 MG PO STA (15:16)
[2023-08-25] MEDS ORDERED: TYLENOL EXTRA STRENGTH 500 MG ONE (15:23)
[2023-08-25] MEDS ORDERED: BABY ASPIRIN 81 MG CHEW ONE (15:23)
[2023-08-25 15:25] VITALS: TEMP 96.6
[2023-08-25 15:37] LABS: Absolute Neutrophil Ct (ANC) 4.43 x10^3/uL (1.4-6.9); BASOPHIL % 0.9 % (0.0-0.4); Basophil (Absolute #) 0.07 x10^3/uL (0-0.4); Eosinophil % 2.1 % (0.00-5.0); Eosinophil (Absolute #) 0.17 x10^3/uL (0-0.5); Hematocrit 49.3 % (42-50); Hemoglobin 16.5 g/dL (12.5-18.0); IMMATURE GRAN # 0.02 x10^3u/L (0.00-0.03); IMMATURE GRAN % 0.2 % (0.00-0.4); Lymphocyte (Absolute #) 2.64 x10^3/uL (1.0-4.6); Lymphocytes % 32.6 % (24.0-44.0); Mean Cell Volume 92.5 fL (78-100); Mean Corpuscular Hgb Concent. 33.5 g/dL (32-36); Mean Platelet Volume 9.1 fL (7.5-11.0); Monocyte (Absolute #) 0.77 x10^3/uL (0.0-1.3); Monocytes % 9.5 % (0.0-12.0); Neutrophil % 54.7 % (36.0-66.0); Platelet Count 325 x10^3/uL (150-450); Red Blood Count 5.33 x10^6/uL (4.1-5.6); Red Cell Distribution Width 13.5 % (11.5-14.0); White Blood Count 8.1 x10^3/uL (4.0-10.5)
[2023-08-25 15:52] LABS: INR 0.91 (0.8-3.0)
--- NOTE | 2023-08-25 15:55 | XRAY ---
CLINICAL HISTORY:confusion COMPARISON:Prior MRI dated 07/08/2023. TECHNIQUE:An axial non-contrast CT scan of the brain was performed from the skull base up to the vertex in bony and soft tissue windows. FINDINGS: Age-related cortical involutional changes associated with prominence of extra-axial cortical sulci, gyral pattern, Sylvian and interhemispheric fissures, basal cisterns and cerebellar folia, and prominent lateral ventricles. Periventricular white matter hypodensities in keeping with chronic vascular ischemic changes. There is normal carballo and white matter differentiation. No acute territorial infarct, bleed, mass effect, or hydrocephalus. No midline shift. There is no mass lesion in either CP angle. Posterior fossa structures appear normal. The IACs are unremarkable. The skull bones appear normal. Visualized paranasal sinuses appear clear. Nasal septal spur pointed towards right middle meatus. IMPRESSION: 1. No detectable acute intracranial hemorrhage or established acute territory infarction. 2. Age-related brain involutional changes. 3. Chronic microvascular ischemic changes. 4. Stable appearances when compared with the prior MRI study. ER was called at 02:43 PM [employer], 08/25/2023 and the Negative Stroke results were verbally communicated with nurse Hazel. Electronically Signed by: Segundo Romero MD. (08/25/2023 14:53:08 [employer])
[2023-08-25 16:01] LABS: ALBUMIN 4.3 g/dL (3.5-5.0); ALKALINE PHOSPHATASE 72 U/L (38-126); ANION GAP 11.9 MEQ/L (5-15); BLOOD UREA NITROGEN 13 mg/dL (9-20); CHLORIDE 101 mmol/L (98-107); Calcium 9.2 mg/dL (8.4-10.2); Carbon Dioxide 29 mmol/L (22-30); Cholesterol 224 mg/dL (50-200); Creatinine 1 1.05 mg/dL (0.66-1.25); EST GLOMERULAR FILTRATION RATE > 60.0 ML/MIN; Glucose 134 mg/dL (74-106); HDL CHOLESTEROL 56 mg/dL (40-60); LDL, DIRECT 140 mg/dL (30-100); Potassium 4.4 mmol/L (3.5-5.1); SGOT/AST 26 U/L (17-59); SGPT/ALT 22 U/L (0-50); SODIUM 137 mmol/L (137-145); TRIGLYCERIDE 231 mg/dL (30-150); Total Protein 7.2 g/dL (6.3-8.2)
[2023-08-25] MEDS ORDERED: Sodium Chloride 0.9% 1000 ML 1,000 ML IV STA (17:18)
[2023-08-25 17:19] VITALS: PULSE 61; O2SAT 97
[2023-08-25 17:24] LABS: Appearance Clear (Clear); Bacteria None Seen /HPF (None Seen); Bilirubin Negative (Negative); Blood Negative (Negative); Epithelial Cells None Seen /HPF (None Seen); Glucose, Urine Negative (Negative); Hyaline Casts NONE SEEN /LPF (0-2); Ketones Negative (Negative); Leukocyte Esterase Negative (Negative); Nitrite Negative (Negative); Ph 5.5 (4.6-8.0); Protein,Urine Dip Negative (Negative); RBC 0-2 /HPF (0-5); Urobilinogen 0.2 mg/dL (0.2); WBC 0-2 /HPF (0-5)
[2023-08-25 17:25] LABS: ADD URINE CULTURE? NO (NO)
[2023-08-25] MEDS ORDERED: Sodium Chloride 0.9% 1000 ML 1,000 ML ONE (17:28)
[2023-08-25 18:03] VITALS: BP 168/86; RESP 27
== END 2023-08-25 18:33 | disposition home or self-care (01) ==
LOC: ED 14:58
DX: R41.0 Disorientation, unspecified (principal); E78.5 Hyperlipidemia, unspecified; E86.0 Dehydration; I67.89 Other cerebrovascular disease; R51.9 Headache, unspecified; Z79.02 Long term (current) use of antithrombotics/antiplatelets; Z79.899 Other long term (current) drug therapy; Z86.73 Personal history of transient ischemic attack (TIA), and cerebral infarction without residual deficits
CPT/HCPCS: 36415; 70450; 80053; 80061; 81001; 83036; 83605; 83721; 84484; 85025; 85610; 85730; 93005; 94760; 96360; 99284; A9270-GY

== ENCOUNTER 2025-02-08 13:06 | Emergency (ER) | payer MEDICARE, OTHER ==
--- NOTE | 2025-02-08 13:11 | ERPHSYRPT ---
- History of Present Illness Time Seen by Provider: 02/08/25 13:11 Source: patient Exam Limitations: no limitations Physician History: This is an 84-year-old white male patient who arrives from physical therapy session in the hospital with his home healthcare provider. Patient's primary care provider is Dr. Segal. During the physical therapy session, patient had a brief, few seconds episode of staring off into the space. Patient does not recall the events. By the time he arrived to the emergency department, the home health care provider stated that he is at his baseline. Patient denies headache. Patient has neck pain. Patient denies chest pain. Patient denies shortness of breath. Patient has chronic bilateral lower extremity issues including peripheral vascular disease. He states his legs feel weak. That was the reason why he was at physical therapy. Patient does have a degree of dementia. He has a history of coronary artery disease and is on Plavix. He also has a history of depression, hypertension and gout. Timing/Duration: today Severity: mild Character of Deficits: none Deficits: decrease ability to walk (Chronic) Baseline/Normal Cognition: alert/disoriented to time Current Cognition: alert/disoriented to time Baseline Gait: walks only w/assistance Associated Symptoms: trouble walking (Chronic), No loss of consciousness, No chest pain Allergies/Adverse Reactions: etodolac [From Lodine] Allergy (Verified 02/08/25 13:21) Rash diphenhydramine HCl [From Benadryl] Adverse Reaction (Verified 02/08/25 13:21) SEE BUGS Home Medications: Benazepril HCl [Lotensin 10 MG] 5 mg PO DAILY 04/11/13 [History] Allopurinol 100 mg [Zyloprim 100 mg] 100 mg PO DAILY 06/07/19 [History] Omeprazole 20 mg PO DAILY 11/10/20 [History] Isosorbide Mononitrate [Isosorbide Mononitrate ER] 30 mg PO DAILY 01/22/23 [History] Duloxetine HCl 30 mg PO DAILY 01/29/23 [History] Aspirin 81 gm Chew [Baby Aspirin 81 mg Chew] 81 mg PO DAILY 08/25/23 [History] Clopidogrel Bisulfate [Clopidogrel] 75 mg PO DAILY 08/25/23 [History] Hx Tetanus, Diphtheria Vaccination/Date Given: Yes Hx Influenza Vaccination/Date Given: Yes Hx Pneumococcal Vaccination/Date Given: Yes Travel Risk - International Travel Have you traveled outside of the country in past 3 weeks: No - Emerging Infectious Disease Are you exhibiting symptoms associated with any current EIDs: No - Review of Systems Constitutional: Weakness (Chronic bilateral lower extremity) Eyes: No Symptoms Ears, Nose, & Throat: No Symptoms Respiratory: No Symptoms Cardiac: No Symptoms Abdominal/Gastrointestinal: No Symptoms Genitourinary Symptoms: No Symptoms Musculoskeletal: No Symptoms Skin: No Symptoms Neurological: Other (Brief staring off into space without answering questions. Now resolved) Psychological: No Symptoms Endocrine: No Symptoms Hematologic/Lymphatic: No Symptoms Immunological/Allergic: No Symptoms All Other Systems: Reviewed and Negative - Past Medical History Neurological History: Dementia Cardiac History: Coronary Artery Disease, Hypertension, Peripheral Vascular Dis ease Respiratory History: No Pertinent History Endocrine Medical History: Diabetes Type II Musculoskeletal History: No Pertinent History, Other Other Medical History: MACULAR DEGENRATION, GOUT. PSH: APPENDIX - Past Surgical History Past Surgical History: Yes Neuro Surgical History: No Pertinent History Cardiac: Cardiac Catheterization Respiratory: No Pertinent History Gastrointestinal: Appendectomy, Cholecystectomy Genitourinary: No Pertinent History Musculoskeletal: No Pertinent History Male Surgical History: No Pertinent History Other Surgical History: TOOTH EXTRACTION - Social History Smoking Status: Former smoker Exposure to second hand smoke: No Drug Use: none Patient Lives Alone: Yes - Nursing Vital Signs Nursing Vital Signs: Initial Vital Signs Temperature 97.7 F 02/08/25 13:20 Pulse Rate 80 02/08/25 13:20 Respiratory Rate 18 02/08/25 13:20 Blood Pressure 96/73 02/08/25 13:20 O2 Sat by Pulse Oximetry 95 02/08/25 13:20 Pain Scale Pain Intensity 0 - Sperry Coma Scale Best Eye Response (Inga): (4) open spontaneously Best Verbal Response (Inga): (4) confused conversation Best Motor Response (Sperry): (6) obeys commands Inga Total: 14 - Physical Exam General Appearance: no apparent distress, alert Eye Exam: bilateral eye: normal inspection, PERRL, EOMI Ears, Nose, Throat Exam: normal ENT inspection, moist mucous membranes Neck Exam: normal inspection, non-tender, supple, full range of motion Respiratory: normal breath sounds, lungs clear, airway intact, No chest tenderness, No respiratory distress Cardiovascular: regular rate/rhythm, normal heart sounds, normal peripheral pulses Gastrointestinal: soft, normal bowel sounds, tenderness Rectal Exam: not done Back Exam: normal inspection, normal range of motion, No CVA tenderness, No vertebral tenderness Extremity Exam: normal inspection, normal range of motion, pelvis stable Mental Status: alert (To self and location) manager development Exam: normal hearing, normal speech, PERRL, tongue midline Skin Exam: normal color, warm, dry SpO2 Interpretation: normal O2 Delivery: Room Air - Course Nursing assessment & vital signs reviewed: Yes EKG Interpreted by Me: RATE (77), Sinus Rhythm, LAFB, NORMAL QRS, Other (QTc is 419. No acute ischemic changes on today's twelve-lead EKG) Ordered Tests: Active Orders 24 hr Category Date Time Status Last Sorter STAT Care 02/08/25 13:23 Active EKG-ER Only STAT Care 02/08/25 13:22 Active IV Insertion STAT Care 02/08/25 13:22 Active NPO (ED) STAT Care 02/08/25 13:22 Active POCT Glucose Check STAT Care 02/08/25 13:22 Active HEAD WITHOUT CONTRAST [CT] Stat Exams 02/08/25 13:23 Completed CBC W DIFF Stat Lab 02/08/25 13:30 Completed CMP Stat Lab 02/08/25 13:30 Completed POCT GLUCOSE Stat Lab 02/08/25 13:32 Received POCT GLUCOSE Stat Lab 02/08/25 13:33 Completed UA W/RFX UR CULTURE Stat Lab 02/08/25 15:23 Completed Lab/Rad Data: Laboratory Result Diagrams 02/08/25 13:30 02/08/25 13:30 Laboratory Results 02/08/25 02/08/25 02/08/25 Range/Units 15:23 13:33 13:30 WBC (4.23-9.07) x10^3/uL RBC (4.63-6.08) x10^6/uL Hgb (13.7-17.5) g/dL Hct (40.1-51.0) % MCV (79.0-92.2) fL MCH (25.7-32.2) pg MCHC (32.3-36.5) g/dL RDW (11.6-14.4) % Plt Count (163-337) x10^3/uL MPV (9.4-12.4) fL Gran % (34.0-67.9) % Immature Gran % (Auto) (0.001-0.429) % Nucleat RBC Rel Count (0.00-0.2) % Eos # (Auto) (0.04-0.54) x10^3/uL Immature Gran # (Auto) (0.001-0.031) x10^3u/L Absolute Lymphs (auto) (1.32-3.57) x10^3/uL Absolute Monos (auto) (0.30-0.82) x10^3/uL Absolute Nucleated RBC (0.00-0.012) x10^3u/L Lymphocytes % (21.8-53.1) % Monocytes % (5.3-12.2) % Eosinophils % (0.8-7.0) % Basophils % (0.2-1.2) % Absolute Granulocytes (1.78-5.38) x10^3/uL Basophils # (0.01-0.08) x10^3/uL Sodium 135 (135-145) mmol/L Potassium 3.9 (3.5-5.1) mmol/L Chloride 101 (98-107) mmol/L Carbon Dioxide 20 L (22-30) mmol/L Anion Gap 17.3 H (5-15) MEQ/L BUN 13 (9-20) mg/dL Creatinine 1.11 (0.66-1.25) mg/dL Estimated GFR 65.1 ML/MIN Glucose 174 H (74-106) mg/dL POC Glucometer 174 H (74 to 106) mg/dL Calcium 8.9 (8.4-10.2) mg/dL Total Bilirubin 0.90 (0.2-1.3) mg/dL AST 42 (17-59) U/L ALT 30 (0-50) U/L Alkaline Phosphatase 69 (38-126) U/L Serum Total Protein 6.6 (6.3-8.2) g/dL Albumin 4.2 (3.5-5.0) g/dL Urine Color Dark Yellow (Yellow) Urine Appearance Clear (Clear) Urine pH 5.0 (4.6-8.0) Ur Specific [place] 1.025 (1.005-1.030) Urine Protein Trace A (Negative) Urine Glucose (UA) Negative (Negative) mg/dL Urine Ketones Trace A (Negative) Urine Blood Negative (Negative) Urine Nitrite Negative (Negative) Urine Bilirubin Negative (Negative) Urine Urobilinogen 1.0 A (0.2) mg/dL Ur Leukocyte Esterase Negative (Negative) U Hyaline Cast (Auto) 3-5 A (0-2) /LPF Urine Microscopic RBC 0-2 (0-5) /HPF Urine Microscopic WBC 0-2 (0-5) /HPF Ur Epithelial Cells None Seen (None Seen) /HPF Urine Bacteria None Seen (None Seen) /HPF Urine Culture Reflexed NO (NO) 02/08/25 Range/Units 13:30 WBC 9.1 H (4.23-9.07) x10^3/uL RBC 5.06 (4.63-6.08) x10^6/uL Hgb 15.2 (13.7-17.5) g/dL Hct 45.3 (40.1-51.0) % MCV 89.5 (79.0-92.2) fL MCH 30.0 (25.7-32.2) pg MCHC 33.6 (32.3-36.5) g/dL RDW 15.2 H (11.6-14.4) % Plt Count 371 H (163-337) x10^3/uL MPV 9.7 (9.4-12.4) fL Gran % 57.4 (34.0-67.9) % Immature Gran % (Auto) 0.2 (0.001-0.429) % Nucleat RBC Rel Count 0.0 (0.00-0.2) % Eos # (Auto) 0.22 (0.04-0.54) x10^3/uL Immature Gran # (Auto) 0.02 (0.001-0.031) x10^3u/L Absolute Lymphs (auto) 2.76 (1.32-3.57) x10^3/uL Absolute Monos (auto) 0.79 (0.30-0.82) x10^3/uL Absolute Nucleated RBC 0.00 (0.00-0.012) x10^3u/L Lymphocytes % 30.4 (21.8-53.1) % Monocytes % 8.7 (5.3-12.2) % Eosinophils % 2.4 (0.8-7.0) % Basophils % 0.9 (0.2-1.2) % Absolute Granulocytes 5.21 (1.78-5.38) x10^3/uL Basophils # 0.08 (0.01-0.08) x10^3/uL Sodium (135-145) mmol/L Potassium (3.5-5.1) mmol/L Chloride (98-107) mmol/L Carbon Dioxide (22-30) mmol/L Anion Gap (5-15) MEQ/L BUN (9-20) mg/dL Creatinine (0.66-1.25) mg/dL Estimated GFR ML/MIN Glucose (74-106) mg/dL POC Glucometer (74 to 106) mg/dL Calcium (8.4-10.2) mg/dL Total Bilirubin (0.2-1.3) mg/dL AST (17-59) U/L ALT (0-50) U/L Alkaline Phosphatase (38-126) U/L Serum Total Protein (6.3-8.2) g/dL Albumin (3.5-5.0) g/dL Urine Color (Yellow) Urine Appearance (Clear) Urine pH (4.6-8.0) Ur Specific [place] (1.005-1.030) Urine Protein (Negative) Urine Glucose (UA) (Negative) mg/dL Urine Ketones (Negative) Urine Blood (Negative) Urine Nitrite (Negative) Urine Bilirubin (Negative) Urine Urobilinogen (0.2) mg/dL Ur Leukocyte Esterase (Negative) U Hyaline Cast (Auto) (0-2) /LPF Urine Microscopic RBC (0-5) /HPF Urine Microscopic WBC (0-5) /HPF Ur Epithelial Cells (None Seen) /HPF Urine Bacteria (None Seen) /HPF Urine Culture Reflexed (NO) - Progress Progress: improved, re-examined Progress Note: 02/08/25 14:52 My medical decision making and the assignment of moderate complexity of this patient's medical issue today is based on review of the patient's past medical history, review the patient's medication list, review the patient drug allergy list, history of present illness and physical findings on examination. The workup in this patient includes placement of a intravenous line, CBC, CMP, twelve-lead EKG, urinalysis, CT scan of the head without contrast. Differential diagnosis includes but is not limited to acute intracranial abnormality, TIA, electrolyte abnormalities, urinary tract infection, dehydration 02/08/25 15:24 I interpreted the laboratory data results that have returned. The urinalysis is pending. The laboratory data that has returned shows no acute, emergent medical issue. CT scan of the head without contrast was interpreted by the radiologist and I reviewed the impression. 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 02/08/25 16:27 The urinalysis shows no acute emergent issue. The patient's son has arrived and he states that the patient has the beginning stages of dementia. The patient's son states that he has these periods where he zones out and it is not unusual for that to be occurring. Physical therapy and the spanish speaking babysitter has never seen it. However, the son says this is pretty common for him. The patient has no chest pain. He has no shortness of breath. He has no abdominal pain and he wants to go home. Neurologically he is intact. Counseled pt/family regarding: lab results, diagnosis, need for follow-up, rad results Medical Desision Making - Independent Historian Additional History obtained from: Child, Manager Of Housekeeping - Diagnostic Testing Diagnostic test were ordered, analyzed, and reviewed by me: Yes Radiological Interpretation: Reviewed by me, Teleradiologist Report - Risk of complications Low Risk: Low risk of morbidity from additional dx testing or treatment - Departure Departure Disposition: Home Clinical Impression: Well adult health check, Confusion Condition: Stable Critical Care Time: No Referrals: HENRY SEGAL [Primary Care Provider] - Follow up/PCP as directed Additional Instructions: Continue your medications as prescribed. Call the patient's primary care provider tomorrow, 02/09/2025, to make arrangements for follow-up appointment for further evaluation and management and to be seen in the next 3 to 5 days.
[2025-02-08 13:21] VITALS: TEMP 97.7
[2025-02-08 13:35] LABS: Absolute Neutrophil Ct (ANC) 5.21 x10^3/uL (1.78-5.38); BASOPHIL % 0.9 % (0.2-1.2); Basophil (Absolute #) 0.08 x10^3/uL (0.01-0.08); Eosinophil % 2.4 % (0.8-7.0); Eosinophil (Absolute #) 0.22 x10^3/uL (0.04-0.54); Hematocrit 45.3 % (40.1-51.0); Hemoglobin 15.2 g/dL (13.7-17.5); IMMATURE GRAN # 0.02 x10^3u/L (0.001-0.031); IMMATURE GRAN % 0.2 % (0.001-0.429); Lymphocyte (Absolute #) 2.76 x10^3/uL (1.32-3.57); Lymphocytes % 30.4 % (21.8-53.1); Mean Cell Volume 89.5 fL (79.0-92.2); Mean Corpuscular Hgb Concent. 33.6 g/dL (32.3-36.5); Mean Platelet Volume 9.7 fL (9.4-12.4); Monocyte (Absolute #) 0.79 x10^3/uL (0.30-0.82); Monocytes % 8.7 % (5.3-12.2); Neutrophil % 57.4 % (34.0-67.9); Platelet Count 371 x10^3/uL (163-337); Red Blood Count 5.06 x10^6/uL (4.63-6.08); Red Cell Distribution Width 15.2 % (11.6-14.4); White Blood Count 9.1 x10^3/uL (4.23-9.07)
[2025-02-08 13:50] LABS: ALBUMIN 4.2 g/dL (3.5-5.0); ANION GAP 17.3 MEQ/L (5-15); BILIRUBIN,TOTAL 0.9 mg/dL (0.2-1.3); Calcium 8.9 mg/dL (8.4-10.2); Creatinine 1 1.11 mg/dL (0.66-1.25); EST GLOMERULAR FILTRATION RATE 65.1 ML/MIN; Potassium 3.9 mmol/L (3.5-5.1); Total Protein 6.6 g/dL (6.3-8.2)
--- NOTE | 2025-02-08 15:18 | XRAY ---
Indication: Brief altered mental status. Multiple contiguous axial images obtained through the head without contrast Comparison: August 25, 2023 Again age-appropriate global atrophy, moderate periventricular degenerative micro-ischemia bilaterally, and small focus old infarct inferior right temporal lobe. No acute intracranial hemorrhage, abnormal extra-axial fluid collection, or mass effect. Fourth ventricle is midline without hydrocephalus. Bony calvarium intact. Visualized paranasal sinuses and mastoid air cells are clear. 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
[2025-02-08 16:21] LABS: Appearance Clear (Clear); Bacteria None Seen /HPF (None Seen); Bilirubin Negative (Negative); Blood Negative (Negative); Epithelial Cells None Seen /HPF (None Seen); Glucose, Urine Negative (Negative); Ketones Trace (Negative); Leukocyte Esterase Negative (Negative); Nitrite Negative (Negative); Protein,Urine Dip Trace (Negative); RBC 0-2 /HPF (0-5); Specific Gravity 1.025 (1.005-1.030); WBC 0-2 /HPF (0-5)
[2025-02-08 16:48] VITALS: BP 119/75; PULSE 72; RESP 15; O2SAT 96
== END 2025-02-08 16:48 | disposition home or self-care (01) ==
LOC: ED 13:06
DX: R41.0 Disorientation, unspecified (principal); M54.2 Cervicalgia; I10 Essential (primary) hypertension; E11.9 Type 2 diabetes mellitus without complications; Z79.02 Long term (current) use of antithrombotics/antiplatelets; Z79.899 Other long term (current) drug therapy
CPT/HCPCS: 36415; 70450; 80053; 81001; 82947; 85025; 93005; 93041; 99284; 99285

== ENCOUNTER 2025-09-10 20:54 | Observation (INO) | payer MEDICARE, OTHER ==
--- NOTE | 2025-09-10 21:11 | ERPHSYRPT ---
- History of Present Illness Time Seen by Provider: 09/10/25 21:11 Source: patient, EMS Exam Limitations: no limitations Patient Subjective Stated Complaint: c/o fall Triage Nursing Assessment: patient brought to ED by EMS eith c/o fall and left shoulder pain. patient rates pain 8/10 at this time, states he did hit his head but denies LOC, son states that he has been weak, patient denies tripping on anything. vitals wnl, pules normal, no deformities noted at this time, no brusing present, patient doesn't appear to be in any distress at this time. Physician History: This is an 85-year-old white male patient who arrives to the emergency department transported by the paramedics and is a patient Dr. Segal. The patient does live alone but 20 hours out of 24 he has home health observing him. In the time they were not there, between 6 PM and 8 PM today, the patient states that he fell. He was not dizzy he simply tried to get up and fell onto his left shoulder. He has pain in the left shoulder. He denies head injury. He denies headache. He denies neck pain. He has no abdominal pain. He has no chest pain. Patient denies loss of consciousness. The patient's son provided independent, additional history. Occurred: just prior to arrival Reason for Fall: unknown, fell from standing pos Injuries/Pain Location: upper extremity (Left shoulder) Quality: aching Severity of Pain-Max: moderate Severity of Pain-Current: moderate Modifying Factors: Improves With: movement Associated Symptoms (Fall): extremity injury (Left shoulder pain), No abdominal pain, No back pain, No confusion, No chest pain, No dizziness, No neck pain, No shortness of breath Allergies/Adverse Reactions: etodolac [From Lodine] Allergy (Verified 09/10/25 21:08) Rash diphenhydramine HCl [From Benadryl] Adverse Reaction (Verified 09/10/25 21:08) SEE BUGS Home Medications: Duloxetine HCl 30 mg PO DAILY 01/29/23 [History] Hx Tetanus, Diphtheria Vaccination/Date Given: Yes (unsure) Hx Influenza Vaccination/Date Given: No Hx Pneumococcal Vaccination/Date Given: Yes Travel Risk - International Travel Have you traveled outside of the country in past 3 weeks: No - Emerging Infectious Disease Are you exhibiting symptoms associated with any current EIDs: No - Review of Systems Constitutional: Weakness (Chronically increasing over the last several months per patient's son) Eyes: No Symptoms Ears, Nose, & Throat: No Symptoms Respiratory: No Symptoms Cardiac: No Symptoms Abdominal/Gastrointestinal: No Symptoms Genitourinary Symptoms: No Symptoms Musculoskeletal: Fall, Injury (Left shoulder) Skin: No Symptoms Neurological: No Symptoms Psychological: No Symptoms Endocrine: No Symptoms Hematologic/Lymphatic: No Symptoms Immunological/Allergic: No Symptoms All Other Systems: Reviewed and Negative - Past Medical History Pertinent Past Medical History: Yes Neurological History: Dementia ENT History: No Pertinent History Cardiac History: Coronary Artery Disease, Hypertension, Peripheral Vascular Disease Respiratory History: No Pertinent History Endocrine Medical History: Diabetes Type II Musculoskeletal History: No Pertinent History, Other GI Medical History: Diverticulosis, GERD, Gallbladder Disease, Hemorrhoids History: No Pertinent History Psycho-Social History: No Pertinent History Male Reproductive Disorders: No Pertinent History Other Medical History: 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 WITH GENERAL SCREENING NO DEFICIT NOTED. SX HX: APPENDECTOMY - Past Surgical History Past Surgical History: Yes Neuro Surgical History: No Pertinent History Cardiac: Cardiac Catheterization Respiratory: No Pertinent History Gastrointestinal: Appendectomy, Cholecystectomy Genitourinary: No Pertinent History Musculoskeletal: No Pertinent History Male Surgical History: No Pertinent History Other Surgical History: TOOTH EXTRACTION - Social History Smoking Status: Former smoker Exposure to second hand smoke: No Drug Use: none - Social Determinants of Health Will the patient participate in the screening: Yes Do you worry about a steady place to live?: No Do you have any problems with any of the following?: No known problems In the past 12 months,have you had to go without utilities?: No Transportation Issues: No Has anyone in your support network made you feel unsafe?: No Have you or anyone in your house had to go w/o enough food: No - Nursing Vital Signs Nursing Vital Signs: Initial Vital Signs Temperature 97.7 F 09/10/25 20:55 Pain Scale Pain Intensity 8 - Inga Coma Score Best Eye Response (Beason): (4) open spontaneously Best Verbal Response (Inga): (5) oriented Best Motor Response (Inga): (6) obeys commands Beason Total: 15 - Physical Exam General Appearance: no apparent distress, alert Head Injury: no evidence of injury Eye Exam: PERRL/EOMI, eyes nml inspection ENT Exam: airway nml, nml ext.inspection Neck Exam: supple, trachea midline, full range of motion, normal alignment, normal inspection Respiratory/Chest Exam: normal breath sounds, No chest tenderness, No respiratory distress, No ecchymosis, No crepitus Cardiovascular Exam: normal heart sounds, regular rate/rhythm Gastrointestinal Exam: soft, normal bowel sounds, No tenderness Rectal Exam: not done Back Exam: normal inspection, normal range of motion, No CVA tenderness, No vertebral tenderness Extremity Exam: normal inspection, pelvis stable, tenderness (Left shoulder. Worsened with movement. Full range of motion present left shoulder), No deformities SpO2: 100 - Course Nursing assessment & vital signs reviewed: Yes EKG Interpreted by Me: RATE Ordered Tests: Active Orders 24 hr Category Date Time Status IV Insertion STAT Care 09/10/25 22:04 Active Pulse Oximetry (ED) STAT Care 09/10/25 22:04 Active Sling Application STAT Care 09/10/25 23:30 Active HUMERUS Stat Exams 09/10/25 22:05 Taken SHOULDER Stat Exams 09/10/25 22:05 Taken CBC W DIFF Stat Lab 09/10/25 22:45 Completed CMP Stat Lab 09/10/25 22:45 Completed MAGNESIUM Stat Lab 09/10/25 22:45 Completed NT PRO BNPII Stat Lab 09/10/25 22:45 Completed TROPONIN Q4H Lab 09/10/25 22:45 Completed TROPONIN Q4H Lab 09/11/25 02:15 Ordered TROPONIN Q4H Lab 09/11/25 06:15 Ordered UA W/RFX UR CULTURE Stat Lab 09/11/25 00:22 Completed Medication Summary Generic Name Dose Route Start Last Admin Trade Name Freq PRN Reason Stop Dose Admin Sodium Chloride 1,000 mls @ 100 mls/hr 09/10/25 22:15 09/10/25 22:47 Sodium Chloride 0.9% 1000 Ml IV 10/10/25 22:14 100 mls/hr .Q10H JOHNATHAN Administration Discontinued Medications Generic Name Dose Route Start Last Admin Trade Name Freq PRN Reason Stop Dose Admin Hydrocodone Bitart/Acetaminophen 1 tab 09/10/25 22:18 09/10/25 22:20 Hydrocodone/Apap 5/325 1 Tab Tablet PO 09/10/25 22:19 1 tab STAT ONE Administration Hydrocodone Bitart/Acetaminophen Confirm 09/10/25 22:20 Hydrocodone/Apap 5/325 1 Tab Tablet Administered 09/10/25 22:21 Dose 1 tab .ROUTE .STK-MED ONE Morphine Sulfate 2 mg 09/11/25 00:09 09/11/25 00:15 Morphine Sulfate 2 Mg/Ml Inj IV 09/11/25 00:10 2 mg STAT ONE Administration Morphine Sulfate Confirm 09/11/25 00:14 Morphine Sulfate 2 Mg/Ml Inj Administered 09/11/25 00:15 Dose 2 mg .ROUTE .STK-MED ONE Ondansetron HCl 4 mg 09/11/25 00:09 09/11/25 00:15 Ondansetron Hcl 4 Mg/2 Ml Vial IV 09/11/25 00:10 4 mg STAT ONE Administration Ondansetron HCl Confirm 09/11/25 00:14 Ondansetron Hcl 4 Mg/2 Ml Vial Administered 09/11/25 00:15 Dose 4 mg .ROUTE .STK-MED ONE Lab/Rad Data: Laboratory Result Diagrams 09/10/25 22:45 09/10/25 22:45 Laboratory Results 09/11/25 09/10/25 09/10/25 Range/Units 00:22 22:45 22:45 WBC (4.23-9.07) x10^3/uL RBC (4.63-6.08) x10^6/uL Hgb (13.7-17.5) g/dL Hct (40.1-51.0) % MCV (79.0-92.2) fL MCH (25.7-32.2) pg MCHC (32.3-36.5) g/dL RDW (11.6-14.4) % Plt Count (163-337) x10^3/uL MPV (9.4-12.4) fL Gran % (34.0-67.9) % Immature Gran % (Auto) (0.001-0.429) % Nucleat RBC Rel Count (0.00-0.2) % Eos # (Auto) (0.04-0.54) x10^3/uL Immature Gran # (Auto) (0.001-0.031) x10^3u/L Absolute Lymphs (auto) (1.32-3.57) x10^3/uL Absolute Monos (auto) (0.30-0.82) x10^3/uL Absolute Nucleated RBC (0.00-0.012) x10^3u/L Lymphocytes % (21.8-53.1) % Monocytes % (5.3-12.2) % Eosinophils % (0.8-7.0) % Basophils % (0.2-1.2) % Absolute Granulocytes (1.78-5.38) x10^3/uL Basophils # (0.01-0.08) x10^3/uL Sodium 131 L (135-145) mmol/L Potassium 3.5 (3.5-5.1) mmol/L Chloride 100 (98-107) mmol/L Carbon Dioxide 26 (22-30) mmol/L Anion Gap 8.9 (5-15) MEQ/L BUN 10 (9-20) mg/dL Creatinine 1.10 (0.66-1.25) mg/dL Estimated GFR 65.4 ML/MIN Glucose 118 H (74-106) mg/dL Calcium 9.0 (8.4-10.2) mg/dL Magnesium 1.9 (1.6-2.3) mg/dL Total Bilirubin 0.60 (0.2-1.3) mg/dL AST 38 (17-59) U/L ALT 21 (0-50) U/L Alkaline Phosphatase 130 H (38-126) U/L Troponin I < 0.012 (0.000-0.033) ng/mL NT-Pro-B Natriuret Pep 59.9 (<300) pg/mL Serum Total Protein 6.2 L (6.3-8.2) g/dL Albumin 3.5 (3.5-5.0) g/dL Urine Color Dark Yellow (Yellow) Urine Appearance Clear (Clear) Urine pH 5.0 (4.6-8.0) Ur Specific Monroe >=1.030 A (1.005-1.030) Urine Protein 30 (Negative) Urine Glucose (UA) Negative (Negative) mg/dL Urine Ketones 15 A (Negative) Urine Blood Negative (Negative) Urine Nitrite Negative (Negative) Urine Bilirubin Small A (Negative) Urine Urobilinogen 1.0 A (0.2) mg/dL Ur Leukocyte Esterase Negative (Negative) U Hyaline Cast (Auto) 3-5 A (0-2) /LPF Urine Microscopic RBC 0-2 (0-5) /HPF Urine Microscopic WBC 0-2 (0-5) /HPF Ur Epithelial Cells Rare (None Seen) /HPF Urine Bacteria None Seen (None Seen) /HPF Urine Culture Reflexed NO (NO) 09/10/25 Range/Units 22:45 WBC 12.7 H (4.23-9.07) x10^3/uL RBC 5.31 (4.63-6.08) x10^6/uL Hgb 14.8 (13.7-17.5) g/dL Hct 45.9 (40.1-51.0) % MCV 86.4 (79.0-92.2) fL MCH 27.9 (25.7-32.2) pg MCHC 32.2 L (32.3-36.5) g/dL RDW 16.3 H (11.6-14.4) % Plt Count 323 (163-337) x10^3/uL MPV 9.3 L (9.4-12.4) fL Gran % 70.2 H (34.0-67.9) % Immature Gran % (Auto) 0.3 (0.001-0.429) % Nucleat RBC Rel Count 0.0 (0.00-0.2) % Eos # (Auto) 0.09 (0.04-0.54) x10^3/uL Immature Gran # (Auto) 0.04 H (0.001-0.031) x10^3u/L Absolute Lymphs (auto) 2.48 (1.32-3.57) x10^3/uL Absolute Monos (auto) 1.09 H (0.30-0.82) x10^3/uL Absolute Nucleated RBC 0.00 (0.00-0.012) x10^3u/L Lymphocytes % 19.6 L (21.8-53.1) % Monocytes % 8.6 (5.3-12.2) % Eosinophils % 0.7 L (0.8-7.0) % Basophils % 0.6 (0.2-1.2) % Absolute Granulocytes 8.91 H (1.78-5.38) x10^3/uL Basophils # 0.07 (0.01-0.08) x10^3/uL Sodium (135-145) mmol/L Potassium (3.5-5.1) mmol/L Chloride (98-107) mmol/L Carbon Dioxide (22-30) mmol/L Anion Gap (5-15) MEQ/L BUN (9-20) mg/dL Creatinine (0.66-1.25) mg/dL Estimated GFR ML/MIN Glucose (74-106) mg/dL Calcium (8.4-10.2) mg/dL Magnesium (1.6-2.3) mg/dL Total Bilirubin (0.2-1.3) mg/dL AST (17-59) U/L ALT (0-50) U/L Alkaline Phosphatase (38-126) U/L Troponin I (0.000-0.033) ng/mL NT-Pro-B Natriuret Pep (<300) pg/mL Serum Total Protein (6.3-8.2) g/dL Albumin (3.5-5.0) g/dL Urine Color (Yellow) Urine Appearance (Clear) Urine pH (4.6-8.0) Ur Specific Monroe (1.005-1.030) Urine Protein (Negative) Urine Glucose (UA) (Negative) mg/dL Urine Ketones (Negative) Urine Blood (Negative) Urine Nitrite (Negative) Urine Bilirubin (Negative) Urine Urobilinogen (0.2) mg/dL Ur Leukocyte Esterase (Negative) U Hyaline Cast (Auto) (0-2) /LPF Urine Microscopic RBC (0-5) /HPF Urine Microscopic WBC (0-5) /HPF Ur Epithelial Cells (None Seen) /HPF Urine Bacteria (None Seen) /HPF Urine Culture Reflexed (NO) - Progress Progress: improved, pain not gone completely, re-examined Progress Note: 09/10/25 23:35 My medical decision making and the assignment of moderate complexity of this patient's medical issue today is based on review of the patient's past medical history, reviewed the patient's medication list, reviewed patient drug allergy list, history present illness and physical findings on examination. The workup in this patient includes placement of intravenous line, infusion of normal saline solution, CBC, CMP, twelve-lead EKG, troponin level, urinalysis, x-ray of the patient's left shoulder and left humerus. Differential diagnosis includes but is not limited to generalized weakness, anemia, electrolyte abnormalities, urinary tract infection, dehydration, fracture left shoulder, fracture left humerus, dislocation left humerus, dislocation left shoulder I interpreted the patient's following preliminary reports: Left shoulder x-ray shows no acute dislocation. However there is a distal left clavicular nondisplaced fracture. Left humerus x-ray shows no acute fracture or dislocation. I spoke with telehospitalist Dr. Gallego regarding this patient. The patient has been increasingly weak over the last several months. He fell. Difficult for him to pick himself up and move on his own. I think the patient will be best served by placing him in observation, obtaining physical therapy evaluation and management as well as discharge planning, IV hydration as well. I interpreted the patient's laboratory data results. On the laboratory data results that returned patient has a white count of 12.7 his sodium is 131. He has suggestion of dehydration with ketonuria. His BNP is normal at 59.9 his troponin is normal as well. Counseled pt/family regarding: lab results, diagnosis, need for follow-up, rad results Medical Desision Making - Independent Historian Additional History obtained from: Family - Diagnostic Testing Diagnostic test were ordered, analyzed, and reviewed by me: Yes Radiological Interpretation: Interpreted by me - Risk of complications The pt has a high risk of morbidity or mortality based on: Decision regarding hospitilization or escalation of hosp level of care - Departure Departure Disposition: Observation Clinical Impression: Frequent falls, Weakness, Fracture of left clavicle, Dehydration, Leukocytosis Condition: Fair Critical Care Time: No Referrals: HENRY SEGAL [Primary Care Provider, [facility]] - Follow up/PCP as directed
[2025-09-10] MEDS: NORCO 5/325 MG PO ONE (22:20)
[2025-09-10] MEDS ORDERED: NORCO 5/325 MG ONE (22:20)
[2025-09-10 22:50] LABS: BASOPHIL % 0.6 % (0.2-1.2); Basophil (Absolute #) 0.07 x10^3/uL (0.01-0.08); Eosinophil (Absolute #) 0.09 x10^3/uL (0.04-0.54); Hematocrit 45.9 % (40.1-51.0); Hemoglobin 14.8 g/dL (13.7-17.5); IMMATURE GRAN # 0.04 x10^3u/L (0.001-0.031); IMMATURE GRAN % 0.3 % (0.001-0.429); Lymphocyte (Absolute #) 2.48 x10^3/uL (1.32-3.57); Mean Corpuscular Hemoglobin 27.9 pg (25.7-32.2); Mean Corpuscular Hgb Concent. 32.2 g/dL (32.3-36.5); Monocyte (Absolute #) 1.09 x10^3/uL (0.30-0.82); NUCLEATED RBC # 0.00 x10^3u/L (0.00-0.012); NUCLEATED RBC % 0.0 % (0.00-0.2); Platelet Count 323 x10^3/uL (163-337); Red Blood Count 5.31 x10^6/uL (4.63-6.08); White Blood Count 12.7 x10^3/uL (4.23-9.07)
[2025-09-10 23:20] LABS: Calcium 9.0 mg/dL (8.4-10.2); Carbon Dioxide 26.0 mmol/L (22-30); Creatinine 1 1.1 mg/dL (0.66-1.25); EST GLOMERULAR FILTRATION RATE 65.4 ML/MIN; Glucose 118.0 mg/dL (74-106); NT PRO BNPII 59.9 pg/mL (<300); Potassium 3.5 mmol/L (3.5-5.1); SGOT/AST 38.0 U/L (17-59); SGPT/ALT 21.0 U/L (0-50); Total Protein 6.2 g/dL (6.3-8.2)
[2025-09-11] MEDS ORDERED: Zofran 4 MG/2 ML VIAL ONE (00:14)
[2025-09-11] MEDS ORDERED: MORPHINE SULFATE 2 MG INJ ONE (00:14)
[2025-09-11] MEDS: Zofran 4 MG/2 ML VIAL IV ONE (00:15)
[2025-09-11] MEDS: MORPHINE SULFATE 2 MG INJ IV ONE (00:15)
[2025-09-11 00:44] LABS: Glucose, Urine Negative (Negative); Protein,Urine Dip 30 (Negative); RBC 0-2 /HPF (0-5); WBC 0-2 /HPF (0-5)
[2025-09-11] MEDS ORDERED: TYLENOL 325 MG PO PRN ×2 (02:04→10:40)
[2025-09-11] MEDS ORDERED: Zofran 4 MG/2 ML VIAL IV PRN (02:04)
[2025-09-11] MEDS ORDERED: MORPHINE SULFATE 2 MG INJ IV PRN (02:04)
[2025-09-11 02:24] LABS: BASOPHIL % 0.7 % (0.2-1.2); Basophil (Absolute #) 0.08 x10^3/uL (0.01-0.08); Eosinophil (Absolute #) 0.12 x10^3/uL (0.04-0.54); Hematocrit 43.1 % (40.1-51.0); Hemoglobin 14.3 g/dL (13.7-17.5); IMMATURE GRAN # 0.04 x10^3u/L (0.001-0.031); IMMATURE GRAN % 0.4 % (0.001-0.429); Lymphocyte (Absolute #) 2.30 x10^3/uL (1.32-3.57); Mean Corpuscular Hemoglobin 28.8 pg (25.7-32.2); Mean Corpuscular Hgb Concent. 33.2 g/dL (32.3-36.5); Monocyte (Absolute #) 1.11 x10^3/uL (0.30-0.82); NUCLEATED RBC # 0.00 x10^3u/L (0.00-0.012); NUCLEATED RBC % 0.0 % (0.00-0.2); Platelet Count 313 x10^3/uL (163-337); Red Blood Count 4.96 x10^6/uL (4.63-6.08); White Blood Count 11.0 x10^3/uL (4.23-9.07)
[2025-09-11 02:45] LABS: Calcium 8.7 mg/dL (8.4-10.2); Carbon Dioxide 25.0 mmol/L (22-30); Creatinine 1 1.0 mg/dL (0.66-1.25); EST GLOMERULAR FILTRATION RATE 73.3 ML/MIN; Glucose 118.0 mg/dL (74-106); Potassium 3.2 mmol/L (3.5-5.1); SGOT/AST 38.0 U/L (17-59); SGPT/ALT 20.0 U/L (0-50); Total Protein 5.8 g/dL (6.3-8.2)
[2025-09-11] MEDS: TYLENOL EXTRA STRENGTH 500 MG PO PRN ×2 (03:35→17:32)
--- NOTE | 2025-09-11 05:11 | PCM.HP ---
History of Present Illness - Chief Complaint Chief Complaint: Frequent falls, fracture left clavicle, weakness History of Present Illness: Left clavicular non-displaced fracture (acute) X-ray imaging was completed and showed an acute, non-displaced fracture of the distal left clavicle. There were no concerning findings suggestive of neurovascular compromise. Plan for conservative management, including pain medication as needed. Hyponatremia (acute, high risk) Serum sodium was noted to be 131. The likely etiology is reduced oral intake. Plan to continue gentle IV hydration. A repeat basic metabolic panel has been ordered for every eight hours. Hypokalemia (acute) Serum potassium was reduced to 3.2 with IV fluid resuscitation, suggestive of electrolyte depletion secondary to malnutrition. Plan for oral repletion of potassium. Will continue serial monitoring with a basic metabolic panel. Deconditioning / Concern for failure to thrive / High fall risk (acute, high risk) Condition is exacerbated by suspected underlying dementia. This places him at a very high risk for future falls and loss of functional status. Plan for a rehabilitation evaluation. Dementia (high risk) This condition contributes to a high fall risk as mentioned above. Will obtain further history from family regarding the time course of symptoms. An inpatient neurology consult will be pursued after discussion with the patient's son. Subjective Mr. Polanco is a gentleman who presents following an unwitnessed fall. He reports that he fell without any associated loss of consciousness. Following the fall, he was unable to get up and sustained an injury to his left shoulder. Home medications Duloxetine 30mg Physical examination Vital Signs Blood Pressure: 142/89 mmHg Heart Rate: 73 beats per minute Temperature: 97.3 F Respiratory Rate: 18 breaths per minute Oxygen Saturation: 96% on room air Height: 5'8" Weight: 178.6 lbs (81 kg) BMI: 27.2 kg/m Neurological Oriented to situation but not to year. Does not appear to be in acute distress. No agitation noted. Cardiovascular Non-tachycardic rhythm. Respiratory Not tachypneic. Musculoskeletal Reports right upper extremity discomfort with flexion, which appears to be mu sculoskeletal in nature. Lab and Studies Reviewed Complete Blood Count (09/10/2025): White blood cell count 12.7, hemoglobin 14.8, platelets 323. Independently reviewed and interpreted by me. Basic Metabolic Panel (09/10/2025): Sodium 131, potassium 3.5, chloride 100, bicarbonate 26, BUN 10, creatinine 1.1, eGFR 1.1. Independently reviewed and interpreted by me. Troponin x2 (09/10/2025): Unremarkable. Independently reviewed and interpreted by me. Urinalysis (09/10/2025): [No results specified]. Independently reviewed and interpreted by me. Left Shoulder X-ray (09/11/2025): Noted acute dislocation, with a distal left clavicle non-displaced fracture. Independently reviewed and interpreted by me. Notes reviewed [Not specified] MDM Summary 1. Number and Complexity of Problems Addressed (CoPA): High Complexity: The patient presents with multiple acute problems including an acute fracture, hyponatremia, and hypokalemia, compounded by chronic conditions such as dementia and deconditioning, which pose a significant risk of functional decline and future falls. The unwitnessed fall itself represents an acute event with a need for thorough investigation. 2. Amount and/or Complexity of Data to be Reviewed and Analyzed (Data): Extensive: Management required ordering and reviewing multiple lab tests (CBC, BMP x3, Troponin x2, UA) and an imaging study (shoulder X-ray). An independent interpretation of these tests was performed. Decision-making also involves obtaining further history from family and a discussion with the patient's son, qualifying as consultation with an independent historian and another provider. 3. Risk of Complications, Morbidity, and/or Mortality (Risk): High Risk: The patient's presentation with an unwitnessed fall, dementia, deconditioning, and electrolyte abnormalities places him at high risk for significant morbidity, including future falls, fractures, and functional decline. The decision was made to pursue an inpatient neurology consult, representing an escalation of care. Management involves IV fluids and electrolyte repletion. - Review of Systems Constitutional: No Fever, No Chills Eyes: No Symptoms Ears, Nose, & Throat: No Symptoms Respiratory: No Cough, No Short Of Breath Cardiac: No Chest Pain, No Edema Abdominal/Gastrointestinal: No Symptoms Genitourinary Symptoms: No Symptoms Musculoskeletal: Fall, Joint Pain Skin: No Symptoms Neurological: No Symptoms Endocrine: No Symptoms Hematologic/Lymphatic: No Symptoms Immunological/Allergic: No Symptoms Medications & Allergies Home Medications: Home Medication List Duloxetine HCl 30 mg PO DAILY 01/29/23 [History Confirmed 09/10/25] Allergies/Adverse Reactions: Allergies Allergy/AdvReac Type Severity Reaction Status Date / Time etodolac [From Lodine] Allergy Rash Verified 09/10/25 21:08 diphenhydramine HCl AdvReac Verified 09/10/25 21:08 [From Benadryl] - Past Medical History Past Medical History: Yes Neurological History: Dementia ENT History: No Pertinent History Cardiac History: Coronary Artery Disease, Hypertension, Peripheral Vascular Disease Respiratory History: No Pertinent History Endocrine Medical History: Diabetes Type II Musculoskelatal History: No Pertinent History, Other GI Medical History: Diverticulosis, GERD, Gallbladder Disease, Hemorrhoids History: No Pertinent History Pyscho-Social History: No Pertinent History Male Reproductive Disorders: No Pertinent History Comment: 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 WITH GENERAL SCREENING NO DEFICIT NOTED. SX HX: APPENDECTOMY - Past Surgical History Past Surgical History: Yes Neuro Surgical History: No Pertinent History Cardiac History: Cardiac Catheterization Respiratory Surgery: No Pertinent History GI Surgical History: Appendectomy, Cholecystectomy Genitourinary Surgical Hx: No Pertinent History Musculskeletal Surgical Hx: No Pertinent History Male Surgical History: No Pertinent History Other Surgical History: TOOTH EXTRACTION - Social History Smoking Status: Never smoker Exposure to second hand smoke: No Alcohol: Occasionally, Daily Drug Use: none - Social Determinants of Health Will the patient participate in the screening: Yes Do you worry about a steady place to live?: No Do you have any problems with any of the following?: No known problems In the past 12 months,have you had to go without utilities?: No Have you or anyone in your house had to go without enough: No Transportation Issues: No Has anyone in your support network made you feel unsafe?: No Does the patient want assistance with any of the above?: No - Physical Exam Vital Signs: Vital Signs - 24 hr Temp Pulse Resp BP BP Pulse Ox 09/11/25 02:02 97.3 F 73 20 142/89 96 09/11/25 01:27 100 09/11/25 00:19 83 18 155/70 99 09/10/25 23:30 170/90 09/10/25 23:01 79 16 172/75 99 09/10/25 22:52 72 14 151/84 99 09/10/25 22:32 76 21 202/99 99 09/10/25 22:08 98 09/10/25 22:07 84 23 158/87 98 09/10/25 22:03 71 20 158/87 99 09/10/25 21:30 69 25 H 141/78 100 09/10/25 21:00 68 15 146/79 100 09/10/25 20:56 66 22 151/79 100 09/10/25 20:55 97.7 F Results - Labs Lab/Micro Results: Lab Results-Last 24 Hours 09/10/25 09/10/25 09/10/25 Range/Units 22:45 22:45 22:45 WBC 12.7 H (4.23-9.07) x10^3/uL RBC 5.31 (4.63-6.08) x10^6/uL Hgb 14.8 (13.7-17.5) g/dL Hct 45.9 (40.1-51.0) % MCV 86.4 (79.0-92.2) fL MCH 27.9 (25.7-32.2) pg MCHC 32.2 L (32.3-36.5) g/dL RDW 16.3 H (11.6-14.4) % Plt Count 323 (163-337) x10^3/uL MPV 9.3 L (9.4-12.4) fL Gran % 70.2 H (34.0-67.9) % Immature Gran % (Auto) 0.3 (0.001-0.429) % Nucleat RBC Rel Count 0.0 (0.00-0.2) % Eos # (Auto) 0.09 (0.04-0.54) x10^3/uL Immature Gran # (Auto) 0.04 H (0.001-0.031) x10^3u/L Absolute Lymphs (auto) 2.48 (1.32-3.57) x10^3/uL Absolute Monos (auto) 1.09 H (0.30-0.82) x10^3/uL Absolute Nucleated RBC 0.00 (0.00-0.012) x10^3u/L Lymphocytes % 19.6 L (21.8-53.1) % Monocytes % 8.6 (5.3-12.2) % Eosinophils % 0.7 L (0.8-7.0) % Basophils % 0.6 (0.2-1.2) % Absolute Granulocytes 8.91 H (1.78-5.38) x10^3/uL Basophils # 0.07 (0.01-0.08) x10^3/uL Sodium 131 L (135-145) mmol/L Potassium 3.5 (3.5-5.1) mmol/L Chloride 100 (98-107) mmol/L Carbon Dioxide 26 (22-30) mmol/L Anion Gap 8.9 (5-15) MEQ/L BUN 10 (9-20) mg/dL Creatinine 1.10 (0.66-1.25) mg/dL Estimated GFR 65.4 ML/MIN Glucose 118 H (74-106) mg/dL Calcium 9.0 (8.4-10.2) mg/dL Magnesium 1.9 (1.6-2.3) mg/dL Total Bilirubin 0.60 (0.2-1.3) mg/dL AST 38 (17-59) U/L ALT 21 (0-50) U/L Alkaline Phosphatase 130 H (38-126) U/L Troponin I < 0.012 (0.000-0.033) ng/mL NT-Pro-B Natriuret Pep 59.9 (<300) pg/mL Serum Total Protein 6.2 L (6.3-8.2) g/dL Albumin 3.5 (3.5-5.0) g/dL Urine Color (Yellow) Urine Appearance (Clear) Urine pH (4.6-8.0) Ur Specific [place] (1.005-1.030) Urine Protein (Negative) Urine Glucose (UA) (Negative) mg/dL Urine Ketones (Negative) Urine Blood (Negative) Urine Nitrite (Negative) Urine Bilirubin (Negative) Urine Urobilinogen (0.2) mg/dL Ur Leukocyte Esterase (Negative) U Hyaline Cast (Auto) (0-2) /LPF Urine Microscopic RBC (0-5) /HPF Urine Microscopic WBC (0-5) /HPF Ur Epithelial Cells (None Seen) /HPF Urine Bacteria (None Seen) /HPF Urine Culture Reflexed (NO) 09/11/25 09/11/25 09/11/25 Range/Units 00:22 02:23 02:23 WBC 11.0 H (4.23-9.07) x10^3/uL RBC 4.96 (4.63-6.08) x10^6/uL Hgb 14.3 (13.7-17.5) g/dL Hct 43.1 (40.1-51.0) % MCV 86.9 (79.0-92.2) fL MCH 28.8 (25.7-32.2) pg MCHC 33.2 (32.3-36.5) g/dL RDW 16.1 H (11.6-14.4) % Plt Count 313 (163-337) x10^3/uL MPV 9.4 (9.4-12.4) fL Gran % 66.8 (34.0-67.9) % Immature Gran % (Auto) 0.4 (0.001-0.429) % Nucleat RBC Rel Count 0.0 (0.00-0.2) % Eos # (Auto) 0.12 (0.04-0.54) x10^3/uL Immature Gran # (Auto) 0.04 H (0.001-0.031) x10^3u/L Absolute Lymphs (auto) 2.30 (1.32-3.57) x10^3/uL Absolute Monos (auto) 1.11 H (0.30-0.82) x10^3/uL Absolute Nucleated RBC 0.00 (0.00-0.012) x10^3u/L Lymphocytes % 20.9 L (21.8-53.1) % Monocytes % 10.1 (5.3-12.2) % Eosinophils % 1.1 (0.8-7.0) % Basophils % 0.7 (0.2-1.2) % Absolute Granulocytes 7.37 H (1.78-5.38) x10^3/uL Basophils # 0.08 (0.01-0.08) x10^3/uL Sodium (135-145) mmol/L Potassium (3.5-5.1) mmol/L Chloride (98-107) mmol/L Carbon Dioxide (22-30) mmol/L Anion Gap (5-15) MEQ/L BUN (9-20) mg/dL Creatinine (0.66-1.25) mg/dL Estimated GFR ML/MIN Glucose (74-106) mg/dL Calcium (8.4-10.2) mg/dL Magnesium (1.6-2.3) mg/dL Total Bilirubin (0.2-1.3) mg/dL AST (17-59) U/L ALT (0-50) U/L Alkaline Phosphatase (38-126) U/L Troponin I < 0.012 (0.000-0.033) ng/mL NT-Pro-B Natriuret Pep (<300) pg/mL Serum Total Protein (6.3-8.2) g/dL Albumin (3.5-5.0) g/dL Urine Color Dark Yellow (Yellow) Urine Appearance Clear (Clear) Urine pH 5.0 (4.6-8.0) Ur Specific [place] >=1.030 A (1.005-1.030) Urine Protein 30 (Negative) Urine Glucose (UA) Negative (Negative) mg/dL Urine Ketones 15 A (Negative) Urine Blood Negative (Negative) Urine Nitrite Negative (Negative) Urine Bilirubin Small A (Negative) Urine Urobilinogen 1.0 A (0.2) mg/dL Ur Leukocyte Esterase Negative (Negative) U Hyaline Cast (Auto) 3-5 A (0-2) /LPF Urine Microscopic RBC 0-2 (0-5) /HPF Urine Microscopic WBC 0-2 (0-5) /HPF Ur Epithelial Cells Rare (None Seen) /HPF Urine Bacteria None Seen (None Seen) /HPF Urine Culture Reflexed NO (NO) 09/11/25 Range/Units 02:23 WBC (4.23-9.07) x10^3/uL RBC (4.63-6.08) x10^6/uL Hgb (13.7-17.5) g/dL Hct (40.1-51.0) % MCV (79.0-92.2) fL MCH (25.7-32.2) pg MCHC (32.3-36.5) g/dL RDW (11.6-14.4) % Plt Count (163-337) x10^3/uL MPV (9.4-12.4) fL Gran % (34.0-67.9) % Immature Gran % (Auto) (0.001-0.429) % Nucleat RBC Rel Count (0.00-0.2) % Eos # (Auto) (0.04-0.54) x10^3/uL Immature Gran # (Auto) (0.001-0.031) x10^3u/L Absolute Lymphs (auto) (1.32-3.57) x10^3/uL Absolute Monos (auto) (0.30-0.82) x10^3/uL Absolute Nucleated RBC (0.00-0.012) x10^3u/L Lymphocytes % (21.8-53.1) % Monocytes % (5.3-12.2) % Eosinophils % (0.8-7.0) % Basophils % (0.2-1.2) % Absolute Granulocytes (1.78-5.38) x10^3/uL Basophils # (0.01-0.08) x10^3/uL Sodium 131 L (135-145) mmol/L Potassium 3.2 L (3.5-5.1) mmol/L Chloride 101 (98-107) mmol/L Carbon Dioxide 25 (22-30) mmol/L Anion Gap 8.4 (5-15) MEQ/L BUN 10 (9-20) mg/dL Creatinine 1.00 (0.66-1.25) mg/dL Estimated GFR 73.3 ML/MIN Glucose 118 H (74-106) mg/dL Calcium 8.7 (8.4-10.2) mg/dL Magnesium (1.6-2.3) mg/dL Total Bilirubin 0.80 (0.2-1.3) mg/dL AST 38 (17-59) U/L ALT 20 (0-50) U/L Alkaline Phosphatase 125 (38-126) U/L Troponin I (0.000-0.033) ng/mL NT-Pro-B Natriuret Pep (<300) pg/mL Serum Total Protein 5.8 L (6.3-8.2) g/dL Albumin 3.2 L (3.5-5.0) g/dL Urine Color (Yellow) Urine Appearance (Clear) Urine pH (4.6-8.0) Ur Specific [place] (1.005-1.030) Urine Protein (Negative) Urine Glucose (UA) (Negative) mg/dL Urine Ketones (Negative) Urine Blood (Negative) Urine Nitrite (Negative) Urine Bilirubin (Negative) Urine Urobilinogen (0.2) mg/dL Ur Leukocyte Esterase (Negative) U Hyaline Cast (Auto) (0-2) /LPF Urine Microscopic RBC (0-5) /HPF Urine Microscopic WBC (0-5) /HPF Ur Epithelial Cells (None Seen) /HPF Urine Bacteria (None Seen) /HPF Urine Culture Reflexed (NO) - Radiology Impressions Radiology Exams & Impressions: Radiology Procedures Category Date Time Status HUMERUS Stat Exams 09/10/25 22:05 Taken SHOULDER Stat Exams 09/10/25 22:05 Taken - Other Procedures and Tests Respiratory Therapy 09/11/25 02:04 EKG REPEAT IN AM Telemedicine Encounter - Telemedicine Encounter Telemedicine Encounter: "The entirety of this encounter was performed via Telemedicine" This visit was performed using real-time audio and video connection between my location and thepatients locationwith the assistance of a surrogateat the patients location. Written or verbal consent was obtained from the patient/guardian to perform this visit usingsynchr[employer]oorBayir Biotechtelemedicine technology. Any patient questions regarding the telemedicine interaction were answered.
[2025-09-11] MEDS ORDERED: POTASSIUM CHLORIDE 20 mEq IN WATER 100ML 20 MEQ/100 ML BAG IV SCH (05:30)
[2025-09-11] MEDS: Klor Con PO ONE ×2 (05:34→17:33)
--- NOTE | 2025-09-11 08:05 | XRAY ---
Indication: Fall injury. Comparison: None 3 portable views left shoulder demonstrates minimally displaced fracture distal clavicle. Elsewhere osteopenia, mild AC degenerative arthropathy, and arteriosclerotic/tortuous descending thoracic aorta.
--- NOTE | 2025-09-11 08:07 | XRAY ---
Indication: Fall injury. Comparison: None 2 portable views left humerus demonstrates minimally displaced fracture distal clavicle. Elsewhere osteopenia, mild AC degenerative arthropathy, and arteriosclerotic/tortuous descending thoracic aorta.
[2025-09-11] MEDS ORDERED: DULOXETINE HCL 20 MG PO SCH (10:00)
[2025-09-11] MEDS: Cymbalta 30 MG Capsule PO SCH (10:08)
[2025-09-11] MEDS ORDERED: HUMALOG SQ PRN (10:35)
[2025-09-11 11:31] LABS: Calcium 8.3 mg/dL (8.4-10.2); Carbon Dioxide 22.0 mmol/L (22-30); Creatinine 1 1.09 mg/dL (0.66-1.25); EST GLOMERULAR FILTRATION RATE 66.1 ML/MIN; Glucose 178.0 mg/dL (74-106); Potassium 3.8 mmol/L (3.5-5.1); SGOT/AST 46.0 U/L (17-59); SGPT/ALT 26.0 U/L (0-50); Total Protein 6.2 g/dL (6.3-8.2)
[2025-09-11] MEDS: Protonix 40MG Tablet PO SCH (17:30)
[2025-09-12 05:49] LABS: BASOPHIL % 0.8 % (0.2-1.2); Basophil (Absolute #) 0.07 x10^3/uL (0.01-0.08); Eosinophil (Absolute #) 0.20 x10^3/uL (0.04-0.54); Hematocrit 42.2 % (40.1-51.0); Hemoglobin 13.8 g/dL (13.7-17.5); IMMATURE GRAN # 0.02 x10^3u/L (0.001-0.031); IMMATURE GRAN % 0.2 % (0.001-0.429); Lymphocyte (Absolute #) 2.36 x10^3/uL (1.32-3.57); Mean Corpuscular Hemoglobin 28.8 pg (25.7-32.2); Mean Corpuscular Hgb Concent. 32.7 g/dL (32.3-36.5); Monocyte (Absolute #) 0.85 x10^3/uL (0.30-0.82); NUCLEATED RBC # 0.00 x10^3u/L (0.00-0.012); NUCLEATED RBC % 0.0 % (0.00-0.2); Platelet Count 305 x10^3/uL (163-337); Red Blood Count 4.79 x10^6/uL (4.63-6.08); White Blood Count 8.3 x10^3/uL (4.23-9.07)
[2025-09-12 06:15] LABS: Calcium 8.1 mg/dL (8.4-10.2); Carbon Dioxide 23.0 mmol/L (22-30); Creatinine 1 1.02 mg/dL (0.66-1.25); EST GLOMERULAR FILTRATION RATE 71.6 ML/MIN; Glucose 127.0 mg/dL (74-106); Potassium 3.8 mmol/L (3.5-5.1)
[2025-09-12] MEDS: ENOXAPARIN SODIUM SQ SCH (09:33)
--- NOTE | 2025-09-12 10:23 | PCM.NOTE ---
Date and Time: 09/12/25 1018 Subjective Assessment: Mr. Polanco is an 85 year old male with a pmhx of dementia, coronary artery disease, hypertension, type 2 diabetes, GERD, diverticulosis, and probable underlying cognitive decline was brought to the ED on 09/10/25 after an unwitnessed mechanical fall at home. He receives 20 hours of home nursing supervision daily, and during the two-hour window when he was alone (68 PM), he attempted to stand and fell directly onto his left shoulder. He denies dizziness, head strike, loss of consciousness, headache, neck pain, chest pain, or abdominal pain. He reports only left shoulder pain. His son provided additional history, sharing growing concerns that the patient can no longer safely remain at home, given progressive weakness, difficulty performing ADLs, and repeated near-fall incidents. On arrival, vitals were stable. Initial labs showed leukocytosis at 12.7, mild hyponatremia at 131, and elevated alkaline phosphatase at 130. Left shoulder X- ray demonstrated a minimally displaced distal clavicle fracture, and humerus films confirmed the same. By 09/12, repeat labs showed improvement in sodium to 132 and normalization of the WBC count to 8.3. There were no signs of neurovascular compromise in the affected arm. The patient continues to report significant weakness in his legs, difficulty mobilizing without assistance, and struggles with ADLs. Given his dementia, fall history, and progressive deconditioning, both the patient and family are requesting skilled rehabilitation placement. Physical therapy is scheduled to evaluate him on Saturday, and case management will meet with the family to coordinate rehab placement. 09/12/25: Met with patient bedside. Endorses left shoulder pain, rated at 2 out of 10, and denies any other complaints. He has no dizziness, headache, neck pain, chest pain, abdominal pain, or shortness of breath. He feels otherwise comfortable at rest and is agreeable to therapy and rehab planning. - Review of Systems Constitutional: Weakness Eyes: No Symptoms Ears, Nose, & Throat: No Symptoms Respiratory: No Symptoms Cardiac: No Symptoms Abdominal/Gastrointestinal: No Symptoms Genitourinary Symptoms: No Symptoms Musculoskeletal: Joint Pain (left shoulder ) Skin: Other (ecchymosis left upper bicept) Neurological: No Symptoms Psychological: No Symptoms Endocrine: No Symptoms Hematologic/Lymphatic: No Symptoms Immunological/Allergic: No Symptoms Objective Exam General Appearance: no apparent distress Neurologic Exam: alert, cooperative, disoriented, confusion Skin Exam: ecchymosis (LUE) Eye Exam: PERRL Ears, Nose, Throat Exam: normal ENT inspection Neck Exam: normal inspection Respiratory Exam: normal breath sounds, lungs clear Cardiovascular Exam: regular rate/rhythm, normal heart sounds Gastrointestinal/Abdomen Exam: soft, normal bowel sounds Extremity Exam: limited range of motion (LUE due to pain) Back Exam: normal inspection Male Genitalia Exam: deferred Rectal Exam: deferred Objective Data Vital Signs: Vital Signs - 24 hr Temp Pulse Resp BP Pulse Ox 09/12/25 08:00 97.6 F 84 18 181/98 97 09/12/25 03:31 97.3 F 69 18 162/80 95 09/11/25 23:38 97.3 F 61 17 174/77 96 09/11/25 19:27 97.1 F 73 18 131/60 96 09/11/25 16:00 97.1 F 78 18 156/84 95 Pain Assessment - Last Documented Pain Intensity 7 Pain Scale Used 0-10 Pain Scale Intake and Output: Intake & Output 09/09/25 09/10/25 09/11/25 09/12/25 11:59 11:59 11:59 11:59 Intake Total 240 780 Balance 240 780 Weight 81.1 kg 81.2 kg Lab Results: Lab Results-Last 24 Hours 09/11/25 09/11/25 09/11/25 Range/Units 05:40 11:04 16:16 WBC (4.23-9.07) x10^3/uL RBC (4.63-6.08) x10^6/uL Hgb (13.7-17.5) g/dL Hct (40.1-51.0) % MCV (79.0-92.2) fL MCH (25.7-32.2) pg MCHC (32.3-36.5) g/dL RDW (11.6-14.4) % Plt Count (163-337) x10^3/uL MPV (9.4-12.4) fL Gran % (34.0-67.9) % Immature Gran % (Auto) (0.001-0.429) % Nucleat RBC Rel Count (0.00-0.2) % Eos # (Auto) (0.04-0.54) x10^3/uL Immature Gran # (Auto) (0.001-0.031) x10^3u/L Absolute Lymphs (auto) (1.32-3.57) x10^3/uL Absolute Monos (auto) (0.30-0.82) x10^3/uL Absolute Nucleated RBC (0.00-0.012) x10^3u/L Lymphocytes % (21.8-53.1) % Monocytes % (5.3-12.2) % Eosinophils % (0.8-7.0) % Basophils % (0.2-1.2) % Absolute Granulocytes (1.78-5.38) x10^3/uL Basophils # (0.01-0.08) x10^3/uL Sodium 133 L (135-145) mmol/L Potassium 3.8 (3.5-5.1) mmol/L Chloride 102 (98-107) mmol/L Carbon Dioxide 22 (22-30) mmol/L Anion Gap 12.6 (5-15) MEQ/L BUN 11 (9-20) mg/dL Creatinine 1.09 (0.66-1.25) mg/dL Estimated GFR 66.1 ML/MIN Glucose 178 H (74-106) mg/dL POC Glucometer 115 H (74 to 106) mg/dL Hemoglobin A1c 5.67 (4.5-6.0) % Calcium 8.3 L (8.4-10.2) mg/dL Total Bilirubin 0.70 (0.2-1.3) mg/dL AST 46 (17-59) U/L ALT 26 (0-50) U/L Alkaline Phosphatase 122 (38-126) U/L Serum Total Protein 6.2 L (6.3-8.2) g/dL Albumin 3.5 (3.5-5.0) g/dL 09/12/25 09/12/25 Range/Units 05:34 05:34 WBC 8.3 (4.23-9.07) x10^3/uL RBC 4.79 (4.63-6.08) x10^6/uL Hgb 13.8 (13.7-17.5) g/dL Hct 42.2 (40.1-51.0) % MCV 88.1 (79.0-92.2) fL MCH 28.8 (25.7-32.2) pg MCHC 32.7 (32.3-36.5) g/dL RDW 16.7 H (11.6-14.4) % Plt Count 305 (163-337) x10^3/uL MPV 9.8 (9.4-12.4) fL Gran % 57.8 (34.0-67.9) % Immature Gran % (Auto) 0.2 (0.001-0.429) % Nucleat RBC Rel Count 0.0 (0.00-0.2) % Eos # (Auto) 0.20 (0.04-0.54) x10^3/uL Immature Gran # (Auto) 0.02 (0.001-0.031) x10^3u/L Absolute Lymphs (auto) 2.36 (1.32-3.57) x10^3/uL Absolute Monos (auto) 0.85 H (0.30-0.82) x10^3/uL Absolute Nucleated RBC 0.00 (0.00-0.012) x10^3u/L Lymphocytes % 28.5 (21.8-53.1) % Monocytes % 10.3 (5.3-12.2) % Eosinophils % 2.4 (0.8-7.0) % Basophils % 0.8 (0.2-1.2) % Absolute Granulocytes 4.78 (1.78-5.38) x10^3/uL Basophils # 0.07 (0.01-0.08) x10^3/uL Sodium 132 L (135-145) mmol/L Potassium 3.8 (3.5-5.1) mmol/L Chloride 104 (98-107) mmol/L Carbon Dioxide 23 (22-30) mmol/L Anion Gap 9.1 (5-15) MEQ/L BUN 13 (9-20) mg/dL Creatinine 1.02 (0.66-1.25) mg/dL Estimated GFR 71.6 ML/MIN Glucose 127 H (74-106) mg/dL POC Glucometer (74 to 106) mg/dL Hemoglobin A1c (4.5-6.0) % Calcium 8.1 L (8.4-10.2) mg/dL Total Bilirubin (0.2-1.3) mg/dL AST (17-59) U/L ALT (0-50) U/L Alkaline Phosphatase (38-126) U/L Serum Total Protein (6.3-8.2) g/dL Albumin (3.5-5.0) g/dL Radiology Exams: Radiology Procedures Category Date Time Status HUMERUS Stat Exams 09/10/25 22:05 Completed SHOULDER Stat Exams 09/10/25 22:05 Completed Medications: Medications Generic Name Dose Route Start Last Admin Trade Name Freq PRN Reason Stop Dose Admin Acetaminophen 1,000 mg 09/11/25 14:44 09/12/25 09:32 Acetaminophen 500 Mg Tablet PO 10/11/25 14:43 1,000 mg Q6HPRN PRN Administration PAIN, FEVER, HEADACHE Duloxetine HCl 30 mg 09/11/25 10:00 09/12/25 09:31 Duloxetine Hcl 30 Mg Cap PO 10/11/25 09:59 30 mg DAILY JOHNATHAN Administration Enoxaparin Sodium 40 mg 09/12/25 10:00 09/12/25 09:40 Enoxaparin Sodium 40 Mg/0.4 Ml Syringe SQ 10/12/25 09:59 Not Given DAILY JOHNATHAN Insulin Human Lispro 0 unit 09/11/25 10:35 Insulin Lispro 1 Unit SQ 10/11/25 10:34 UD PRN HYPERGLYCEMIA Ondansetron HCl 4 mg 09/11/25 02:04 Ondansetron Hcl 4 Mg/2 Ml Vial IV 10/11/25 02:03 Q6H PRN PRN NAUSEA/VOMITING Pantoprazole Sodium 40 mg 09/11/25 12:00 09/12/25 09:32 Protonix (Pantoprazole) 40 Mg Tablet PO 10/11/25 11:59 40 mg DAILY JOHNATHAN Administration Tramadol HCl 50 mg 09/12/25 07:40 Tramadol Hcl 50 Mg Tablet PO 10/12/25 07:39 QID PRN PRN PAIN Discontinued Medications Generic Name Dose Route Start Last Admin Trade Name Freq PRN Reason Stop Dose Admin Acetaminophen 650 mg 09/11/25 02:04 Acetaminophen 325 Mg Tablet PO 10/11/25 02:03 Q4H PRN PRN PAIN, FEVER, HEADACHE Acetaminophen 1,000 mg 09/11/25 04:41 09/11/25 10:07 Acetaminophen 500 Mg Tablet PO 10/11/25 04:40 1,000 mg Q4H PRN PRN Administration HEADACHE Acetaminophen 1,000 mg 09/11/25 10:40 Acetaminophen 325 Mg Tablet PO 10/11/25 10:34 Q6HPRN PRN PAIN, FEVER, HEADACHE Hydrocodone Bitart/Acetaminophen 1 tab 09/10/25 22:18 09/10/25 22:20 Hydrocodone/Apap 5/325 1 Tab Tablet PO 09/10/25 22:19 1 tab STAT ONE Administration Hydrocodone Bitart/Acetaminophen Confirm 09/10/25 22:20 Hydrocodone/Apap 5/325 1 Tab Tablet Administered 09/10/25 22:21 Dose 1 tab .ROUTE .STK-MED ONE Sodium Chloride 1,000 mls @ 100 mls/hr 09/10/25 22:15 09/10/25 22:47 Sodium Chloride 0.9% 1000 Ml IV 10/10/25 22:14 100 mls/hr .Q10H JOHNATHAN Administration Sodium Chloride Confirm 09/10/25 22:44 Sodium Chloride 0.9% 1000 Ml Administered 09/10/25 22:45 Dose 1,000 mls @ ud .ROUTE .STK-MED ONE Sodium Chloride 1,000 mls @ 50 mls/hr 09/11/25 02:04 09/11/25 20:04 Sodium Chloride 0.9% 1000 Ml IV 10/11/25 02:03 Not Given .Q20H JOHNATHAN Potassium Chloride 20 meq in 100 mls @ 50 mls/hr 09/11/25 05:30 Potassium Chloride 20 Meq In Water 100ml IV 09/11/25 09:29 Q2H JOHNATHAN Morphine Sulfate 2 mg 09/11/25 00:09 09/11/25 00:15 Morphine Sulfate 2 Mg/Ml Inj IV 09/11/25 00:10 2 mg STAT ONE Administration Morphine Sulfate Confirm 09/11/25 00:14 Morphine Sulfate 2 Mg/Ml Inj Administered 09/11/25 00:15 Dose 2 mg .ROUTE .STK-MED ONE Morphine Sulfate 1 mg 09/11/25 02:04 Morphine Sulfate 2 Mg/Ml Inj IV 09/16/25 02:03 Q4H PRN PRN SEVERE PAIN Ondansetron HCl 4 mg 09/11/25 00:09 09/11/25 00:15 Ondansetron Hcl 4 Mg/2 Ml Vial IV 09/11/25 00:10 4 mg STAT ONE Administration Ondansetron HCl Confirm 09/11/25 00:14 Ondansetron Hcl 4 Mg/2 Ml Vial Administered 09/11/25 00:15 Dose 4 mg .ROUTE .STK-MED ONE Potassium Chloride 40 meq 09/11/25 05:28 09/11/25 05:34 Potassium Chloride Tab 10 Meq Tab PO 09/11/25 05:29 40 meq STAT ONE Administration Potassium Chloride 40 meq 09/11/25 14:00 09/11/25 17:33 Potassium Chloride Tab 10 Meq Tab PO 09/11/25 14:01 Not Given ONCE ONE Assessment/Plan (1) Fracture of left clavicle Current Visit: Yes Status: Acute Assessment & Plan: -X-ray confirmed minimally displaced distal clavicle fracture without lauri rovascular compromise. -Pain appears localized, no evidence of shoulder instability. -Conservative management planned: analgesics as needed, arm support, and avoidance of heavy lifting or overhead activity. -Physical therapy to assist with safe mobilization. Code(s): S42.002A - FRACTURE OF UNSP PART OF LEFT CLAVICLE, INIT FOR CLOS FX (2) Hyponatremia Current Visit: Yes Status: Acute Assessment & Plan: -Sodium 131 on arrival, improved to 132 with hydration. -Likely driven by low solute intake and poor oral intake at baseline. -Patient now refusing gentle IV hydration - encourage oral intake. Code(s): E87.1 - HYPO-OSMOLALITY AND HYPONATREMIA (3) Hypokalemia Current Visit: Yes Status: Acute Assessment & Plan: -Potassium decreased to 3.2 after IV fluids, consistent with dilution and poor intake/malnutrition -now at 3.8 after replenishment -Tele -monitor renal/lytes Code(s): E87.6 - HYPOKALEMIA (4) Physical deconditioning Current Visit: Yes Status: Acute Assessment & Plan: -Progressive weakness reported by patient and son; difficulty performing ADLs. -Dementia significantly worsens balance and hazard awareness, raising fall risk. -Physical therapy evaluation scheduled; patient and family request SNF/rehab placement. -Case management to coordinate placement on Saturday. Code(s): R53.81 - OTHER MALAISE (5) Dementia Current Visit: Yes Status: Acute Assessment & Plan: -Contributes heavily to fall risk, impaired self-care, and difficulty with home safety. -continue home regimen -CM to evaluate for placement Code(s): F03.90 - UNSP DEMENTIA, UNSP SEVERITY, WITHOUT BEH/PSYCH/MOOD/ANX (6) DMII (diabetes mellitus, type 2) Current Visit: Yes Status: Acute Assessment & Plan: -Currently not taking diabetes medications; A1c 5.67 suggests good control. -Continue ADA diet and low-intensity sliding-scale insulin while inpatient for safety. -LEONIDES cruz (7) Hyperlipemia Current Visit: No Status: Acute Assessment & Plan: -continue home regimen- no home meds VTE: Lovenox PPI: protonix Dispo: 2-3 days pending placement Plan of care time spent > 35 mins Code(s): E78.5 - HYPERLIPIDEMIA, UNSPECIFIED
[2025-09-12] MEDS ORDERED: Artificial Tears 15 ML OP ONE (12:42)
[2025-09-12] MEDS: Artificial Tears 15 ML OP PRN (12:48)
[2025-09-12] MEDS: ULTRAM 50 MG PO PRN (13:52)
[2025-09-12] MEDS: Lidoderm Patch 5% TOP SCH (13:52)
[2025-09-12] MEDS ORDERED: Lidoderm Patch 5% ONE (13:52)
[2025-09-12] MEDS: REMOVE PATCH REMINDER TOP SCH (21:20)
[2025-09-13 04:31] LABS: BASOPHIL % 0.7 % (0.2-1.2); Basophil (Absolute #) 0.05 x10^3/uL (0.01-0.08); Eosinophil (Absolute #) 0.19 x10^3/uL (0.04-0.54); Hematocrit 40.5 % (40.1-51.0); Hemoglobin 13.3 g/dL (13.7-17.5); IMMATURE GRAN # 0.02 x10^3u/L (0.001-0.031); IMMATURE GRAN % 0.3 % (0.001-0.429); Lymphocyte (Absolute #) 1.77 x10^3/uL (1.32-3.57); Mean Corpuscular Hemoglobin 28.3 pg (25.7-32.2); Mean Corpuscular Hgb Concent. 32.8 g/dL (32.3-36.5); Monocyte (Absolute #) 0.85 x10^3/uL (0.30-0.82); NUCLEATED RBC # 0.00 x10^3u/L (0.00-0.012); NUCLEATED RBC % 0.0 % (0.00-0.2); Platelet Count 310 x10^3/uL (163-337); Red Blood Count 4.70 x10^6/uL (4.63-6.08); White Blood Count 7.4 x10^3/uL (4.23-9.07)
[2025-09-13 04:48] LABS: Calcium 8.0 mg/dL (8.4-10.2); Carbon Dioxide 25.0 mmol/L (22-30); Creatinine 1 0.98 mg/dL (0.66-1.25); EST GLOMERULAR FILTRATION RATE 75.1 ML/MIN; Glucose 135.0 mg/dL (74-106); Potassium 3.3 mmol/L (3.5-5.1); SGOT/AST 43.0 U/L (17-59); SGPT/ALT 24.0 U/L (0-50); Total Protein 5.9 g/dL (6.3-8.2)
[2025-09-13] MEDS: Klor Con PO ONE (07:36)
[2025-09-13] MEDS: NORVASC 5 MG PO SCH (09:22)
--- NOTE | 2025-09-13 10:36 | PCM.CONS ---
History of Present Illness - Consult Date of Consultation Date: 09/13/25 Reason for Consult: clavicle fracture Consulting Provider: LAN PURDY MD - [facility] History of Present Illness: is a 85 year old male with h/o dementia, multiple falls, fell 3 days ago injuring his left shoulder. X-rays taken at that time show a left distal clavicle fracture, minimal displacement. Currently he denies pain. He was placed into a sling, however he has been removing it. Medications & Allergies Home Medications: Home Medication List Duloxetine HCl 30 mg PO DAILY 01/29/23 [History Confirmed 09/10/25] Allergies/Adverse Reactions: Allergies Allergy/AdvReac Type Severity Reaction Status Date / Time etodolac [From Lodine] Allergy Rash Verified 09/10/25 21:08 diphenhydramine HCl AdvReac Verified 09/10/25 21:08 [From Benadryl] - Past Medical History Past Medical History: Yes Neurological History: Dementia ENT History: No Pertinent History Cardiac History: Coronary Artery Disease, Hypertension, Peripheral Vascular Disease Respiratory History: No Pertinent History Endocrine Medical History: Diabetes Type II Musculoskelatal History: No Pertinent History, Other GI Medical History: Diverticulosis, GERD, Gallbladder Disease, Hemorrhoids History: No Pertinent History Pyscho-Social History: No Pertinent History Male Reproductive Disorders: No Pertinent History Comment: 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 WITH GENERAL SCREENING NO DEFICIT NOTED. SX HX: APPENDECTOMY - Past Surgical History Past Surgical History: Yes Neuro Surgical History: No Pertinent History Cardiac History: Cardiac Catheterization Respiratory Surgery: No Pertinent History GI Surgical History: Appendectomy, Cholecystectomy Genitourinary Surgical Hx: No Pertinent History Musculskeletal Surgical Hx: No Pertinent History Male Surgical History: No Pertinent History Other Surgical History: TOOTH EXTRACTION - Social History Smoking Status: Never smoker Exposure to second hand smoke: No Alcohol: Occasionally, Daily Drug Use: none - Social Determinants of Health Will the patient participate in the screening: Yes Do you worry about a steady place to live?: No Do you have any problems with any of the following?: No known problems In the past 12 months,have you had to go without utilities?: No Have you or anyone in your house had to go without enough: No Transportation Issues: No Has anyone in your support network made you feel unsafe?: No Does the patient want assistance with any of the above?: No - Nursing Vital Signs Nursing Vital Signs: Vital Signs - 24 hr Temp Pulse Resp BP Pulse Ox 09/13/25 07:31 98.0 F 71 16 183/83 95 09/13/25 04:00 97.2 F 65 16 169/77 98 09/13/25 00:00 97 F 61 18 161/70 99 09/12/25 19:26 97.5 F 68 16 146/64 96 09/12/25 16:00 97.9 F 69 18 139/65 98 09/12/25 11:24 98.0 F 74 18 145/67 96 - Physical Exam Mental Status Exam: alert, oriented x 3, cooperative SpO2: 95 - Upper Extremity Shoulder Exam: bone tenderness (Tender left shoulder AC joint), soft tissue tenderness - Narrative Narrative Physical Exam: Ortho Physical Exam Assessment/Plan (1) Fracture of left clavicle Current Visit: Yes Status: Acute Assessment & Plan: Continue the sling for comfort, however it should be fine if he refuses to wear it. Pain control. He may start left shoulder motion exercises as tolerated. Recommend follow up in 2-3 weeks for repeat x-rays. Code(s): S42.002A - FRACTURE OF UNSP PART OF LEFT CLAVICLE, INIT FOR CLOS FX Results - Labs Lab/Micro Results: Lab Results-Last 24 Hours 09/13/25 09/13/25 Range/Units 04:15 04:15 WBC 7.4 (4.23-9.07) x10^3/uL RBC 4.70 (4.63-6.08) x10^6/uL Hgb 13.3 L (13.7-17.5) g/dL Hct 40.5 (40.1-51.0) % MCV 86.2 (79.0-92.2) fL MCH 28.3 (25.7-32.2) pg MCHC 32.8 (32.3-36.5) g/dL RDW 16.7 H (11.6-14.4) % Plt Count 310 (163-337) x10^3/uL MPV 9.9 (9.4-12.4) fL Gran % 61.0 (34.0-67.9) % Immature Gran % (Auto) 0.3 (0.001-0.429) % Nucleat RBC Rel Count 0.0 (0.00-0.2) % Eos # (Auto) 0.19 (0.04-0.54) x10^3/uL Immature Gran # (Auto) 0.02 (0.001-0.031) x10^3u/L Absolute Lymphs (auto) 1.77 (1.32-3.57) x10^3/uL Absolute Monos (auto) 0.85 H (0.30-0.82) x10^3/uL Absolute Nucleated RBC 0.00 (0.00-0.012) x10^3u/L Lymphocytes % 23.9 (21.8-53.1) % Monocytes % 11.5 (5.3-12.2) % Eosinophils % 2.6 (0.8-7.0) % Basophils % 0.7 (0.2-1.2) % Absolute Granulocytes 4.52 (1.78-5.38) x10^3/uL Basophils # 0.05 (0.01-0.08) x10^3/uL Sodium 132 L (135-145) mmol/L Potassium 3.3 L (3.5-5.1) mmol/L Chloride 102 (98-107) mmol/L Carbon Dioxide 25 (22-30) mmol/L Anion Gap 8.4 (5-15) MEQ/L BUN 14 (9-20) mg/dL Creatinine 0.98 (0.66-1.25) mg/dL Estimated GFR 75.1 ML/MIN Glucose 135 H (74-106) mg/dL Calcium 8.0 L (8.4-10.2) mg/dL Total Bilirubin 0.70 (0.2-1.3) mg/dL AST 43 (17-59) U/L ALT 24 (0-50) U/L Alkaline Phosphatase 119 (38-126) U/L Serum Total Protein 5.9 L (6.3-8.2) g/dL Albumin 3.2 L (3.5-5.0) g/dL
--- NOTE | 2025-09-13 11:53 | XRAY ---
Indication: [facility] placement. Comparison: November 10, 2020 Portable chest demonstrates new minimal left lung base infiltrate/atelectasis with small effusion. Remaining heart and lungs unremarkable again with tortuous descending aorta. Bony thorax intact again with osteopenia and degenerative changes.
--- NOTE | 2025-09-13 14:57 | PCM.DS ---
Discharge Summary Date of Admission: 09/11/25 01:57 Date of Discharge: 09/13/25 Admitting Physician: HIRA ANDERS MD Consults: Consults on Case 09/13/25 09:13 Consult Ortho ROUTINE Primary Care Provider: HENRY DORAN Allergies Allergies etodolac [From Lodine] Allergy (Verified 09/10/25 21:08) Rash diphenhydramine HCl [From Benadryl] Adverse Reaction (Verified 09/10/25 21:08) SEE [facility] Summary - Hospital Course Hospital Course: Mr. Polanco is an 85-year-old male with a history of dementia, coronary artery disease, hypertension, type 2 diabetes, GERD, diverticulosis, and probable underlying cognitive decline who presented on 09/10/25 after an unwitnessed mechanical fall at home. He receives 20 hours of daily home nursing supervision, and during the two-hour period he was alone, he attempted to stand and fell directly onto his left shoulder. He denied head strike, loss of consciousness, headache, neck pain, chest pain, dizziness, or abdominal pain. His son at bedside described progressive weakness, multiple near-falls, worsening difficulty with ADLs, and concerns that he may no longer be safe at home. On arrival, vitals were stable. Labs revealed leukocytosis at 12.7, mild hyponatremia at 131, and an elevated alkaline phosphatase at 130. Imaging of the left shoulder including clavicle and humerus films demonstrated a minimally displaced distal clavicle fracture without humeral involvement, and neurovascular exam of the affected arm remained intact. Over the course of hospitalization, sodium improved slightly to 132 with hydration, WBC normalized to 8.3 by 09/12, and potassium initially dropped to 3.2 after IV fluids but corrected to 3.8 after supplementation. The patient continued to report global weakness and demonstrated difficulty with transfers and safe ambulation. He remained hemodynamically stable and denied dizziness, shortness of breath, chest pain, or abdominal pain throughout. Orthopedics reviewed the imaging and recommended conservative management: sling for comfort (though acceptable if he refuses), multimodal pain control, and initiation of gentle shoulder [id number] exercises as tolerated. PT/OT assessments are pending Saturday, with case management coordinating penitentiary placement as both patient and family agree he cannot safely return home. He is medically stable for discharge pending acceptance to the [facility]. Blood pressure remained elevated during admission, and amlodipine 5 mg daily was started with instructions for outpatient monitoring at SNF or by his primary provider. He was agreeable to discharge plans today, reporting left shoulder pain at 2/10 and otherwise without acute complaints. He is being discharged in stable condition to a penitentiary facility for rehabilitation and 24-hour supervision once facility has accepted. I spent 35 minutes [id number] with the patient on the day of discharge performing discharge exam, discussing hospital stay and discharge instructions with patient and caregivers, preparation of discharge records, prescriptions & referral forms and addressing any questions/concerns the patient had as documented above. - Vitals & Intake/Output Vital Signs: Vital Signs Temperature 97.7 F 09/13/25 11:16 Pulse Rate 76 09/13/25 11:16 Respiratory Rate 16 09/13/25 11:16 Blood Pressure 160/73 09/13/25 11:16 O2 Sat by Pulse Oximetry 94 L 09/13/25 11:16 Intake & Output: Intake & Output 09/11/25 09/12/25 09/13/25 09/14/25 11:59 11:59 11:59 11:59 Intake Total 677 408 9809 200 Balance 895 128 4286 200 Weight 81.1 kg 81.2 kg - Lab Result Diagrams: 09/13/25 04:15 09/13/25 04:15 Lab Results-Last 24 Hrs: Lab Results-Last 24 Hours 09/13/25 09/13/25 Range/Units 04:15 04:15 WBC 7.4 (4.23-9.07) x10^3/uL RBC 4.70 (4.63-6.08) x10^6/uL Hgb 13.3 L (13.7-17.5) g/dL Hct 40.5 (40.1-51.0) % MCV 86.2 (79.0-92.2) fL MCH 28.3 (25.7-32.2) pg MCHC 32.8 (32.3-36.5) g/dL RDW 16.7 H (11.6-14.4) % Plt Count 310 (163-337) x10^3/uL MPV 9.9 (9.4-12.4) fL Gran % 61.0 (34.0-67.9) % Immature Gran % (Auto) 0.3 (0.001-0.429) % Nucleat RBC Rel Count 0.0 (0.00-0.2) % Eos # (Auto) 0.19 (0.04-0.54) x10^3/uL Immature Gran # (Auto) 0.02 (0.001-0.031) x10^3u/L Absolute Lymphs (auto) 1.77 (1.32-3.57) x10^3/uL Absolute Monos (auto) 0.85 H (0.30-0.82) x10^3/uL Absolute Nucleated RBC 0.00 (0.00-0.012) x10^3u/L Lymphocytes % 23.9 (21.8-53.1) % Monocytes % 11.5 (5.3-12.2) % Eosinophils % 2.6 (0.8-7.0) % Basophils % 0.7 (0.2-1.2) % Absolute Granulocytes 4.52 (1.78-5.38) x10^3/uL Basophils # 0.05 (0.01-0.08) x10^3/uL Sodium 132 L (135-145) mmol/L Potassium 3.3 L (3.5-5.1) mmol/L Chloride 102 (98-107) mmol/L Carbon Dioxide 25 (22-30) mmol/L Anion Gap 8.4 (5-15) MEQ/L BUN 14 (9-20) mg/dL Creatinine 0.98 (0.66-1.25) mg/dL Estimated GFR 75.1 ML/MIN Glucose 135 H (74-106) mg/dL Calcium 8.0 L (8.4-10.2) mg/dL Total Bilirubin 0.70 (0.2-1.3) mg/dL AST 43 (17-59) U/L ALT 24 (0-50) U/L Alkaline Phosphatase 119 (38-126) U/L Serum Total Protein 5.9 L (6.3-8.2) g/dL Albumin 3.2 L (3.5-5.0) g/dL - Radiology Exams Ordered Rad Exams-Entire Visit: Radiology Procedures Category Date Time Status CHEST 1 VIEW (PORTABLE) Urgent Exams 09/13/25 11:30 Completed - Procedures and Test Procedures and Tests throughout Hospitalization: Therapy Orders & Screens 11/15/25 02:04 PT Eval & Treat ( Order) ONCE Reason for Eval:: Frequent falls, weakness Diagnosis: Frequent falls, fracture left clavicle, weakness Discharge Exam General Appearance: no apparent distress Neurologic Exam: alert, oriented x 3, cooperative Eye Exam: PERRL Ears, Nose, Throat Exam: normal ENT inspection Neck Exam: normal inspection Respiratory Exam: normal breath sounds, lungs clear Cardiovascular Exam: regular rate/rhythm, normal heart sounds Gastrointestinal/Abdomen Exam: soft, normal bowel sounds Male Genitalia Exam: deferred Rectal Exam: deferred Back Exam: normal inspection, vertebral tenderness Extremity Exam: limited range of motion (LUE due to pain) Skin Exam: normal color Final Diagnosis/Problem List - Final Discharge Diagnosis/Problem (1) Fracture of left clavicle Current Visit: Yes Status: Acute Assessment & Plan: X-ray confirmed a minimally displaced distal clavicle fracture; humerus films without additional injury; no neurovascular compromise. Pain remains mild and well localized managed with Tylenol Conservative management per ortho: sling for comfort (may decline), no lifting/overhead activity. Start gentle ROM exercises as tolerated. Continue multimodal pain control at SNF. PT/OT for safe mobilization and strengthening. Follow up with orthopedics in 23 weeks for repeat X-rays. Code(s): S42.002A - FRACTURE OF UNSP PART OF LEFT CLAVICLE, INIT FOR CLOS FX (2) Hyponatremia Current Visit: Yes Status: Acute Assessment & Plan: Sodium 131 on arrival -132; consistent with low solute intake + chronic poor PO. Declined IV fluids. Encourage oral intake, maintain regular diet. SNF to monitor BMP in 35 days or sooner if mental status changes. Code(s): E87.1 - HYPO-OSMOLALITY AND HYPONATREMIA (3) Hypokalemia Current Visit: Yes Status: Acute Assessment & Plan: Potassium at 3.3, replenished Continue to monitor BMP at SNF. Replete PRN per facility protocol. Code(s): E87.6 - HYPOKALEMIA (4) Physical deconditioning Current Visit: Yes Status: Acute Assessment & Plan: Progressive weakness noted by patient and son; difficulty with ADLs; high fall risk. Dementia contributes significantly to impaired judgment and unsafe mobility. PT/OT evaluation on Saturday; anticipate daily therapy at SNF. 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 SNF for 20/05 supervision, safety cues, structured environment. Code(s): F03.90 - UNSP DEMENTIA, UNSP SEVERITY, WITHOUT BEH/PSYCH/MOOD/ANX (6) DMII (diabetes mellitus, type 2) Current Visit: Yes Status: Acute Assessment & Plan: ADA diet. ACHS accuchecks for first 48 hours, then reassess based on glucose patterns Not on home meds A1c 5.67 (7) Hyperlipemia Current Visit: No Status: Acute Assessment & Plan: -not on home meds Code(s): E78.5 - HYPERLIPIDEMIA, UNSPECIFIED (8) HTN (hypertension) Current Visit: Yes Status: Acute Assessment & Plan: Elevated BPs noted; amlodipine 5 mg started with good tolerance. Continue amlodipine 5 mg daily. SNF to monitor BP trends and adjust if persistently >150/90. Code(s): I10 - ESSENTIAL (PRIMARY) HYPERTENSION - Discharge Discharge Date: 09/13/25 Disposition: Home, Self-Care Condition: Stable Prescriptions: New Carboxymethylcellulose Sodium [Artificial Tears 15 ML] 1 ml OP Q2HPRN PRN PRN Reason: DRY/ITCHY EYES Lidocaine HCl 5% Patch [Lidoderm Patch 5%] 2 patch TOP DAILY patch Amlodipine Besylate 5 mg [Norvasc 5 mg] 5 mg PO QAM tablet Acetaminophen 500 mg [Tylenol Extra Strength 500 mg] 1,000 mg PO Q6HPRN PRN tablet PRN Reason: Pain, Fever, Headache Continue Duloxetine HCl 30 mg PO DAILY Follow up with: LAN PURDY MD [ACTIVE STAFF, ORTHOPEDICS] - 09/30/25 10:30 am
[2025-09-14 04:59] LABS: BASOPHIL % 1.2 % (0.2-1.2); Basophil (Absolute #) 0.07 x10^3/uL (0.01-0.08); Eosinophil (Absolute #) 0.23 x10^3/uL (0.04-0.54); Hematocrit 41.4 % (40.1-51.0); Hemoglobin 13.8 g/dL (13.7-17.5); IMMATURE GRAN # 0.01 x10^3u/L (0.001-0.031); IMMATURE GRAN % 0.2 % (0.001-0.429); Lymphocyte (Absolute #) 2.11 x10^3/uL (1.32-3.57); Mean Corpuscular Hemoglobin 28.9 pg (25.7-32.2); Mean Corpuscular Hgb Concent. 33.3 g/dL (32.3-36.5); Monocyte (Absolute #) 0.65 x10^3/uL (0.30-0.82); NUCLEATED RBC # 0.00 x10^3u/L (0.00-0.012); NUCLEATED RBC % 0.0 % (0.00-0.2); Platelet Count 313 x10^3/uL (163-337); Red Blood Count 4.77 x10^6/uL (4.63-6.08); White Blood Count 6.0 x10^3/uL (4.23-9.07)
[2025-09-14 05:16] LABS: Calcium 8.1 mg/dL (8.4-10.2); Carbon Dioxide 21.0 mmol/L (22-30); Creatinine 1 0.91 mg/dL (0.66-1.25); EST GLOMERULAR FILTRATION RATE 82.1 ML/MIN; Glucose 101.0 mg/dL (74-106); Potassium 3.7 mmol/L (3.5-5.1); SGOT/AST 42.0 U/L (17-59); SGPT/ALT 23.0 U/L (0-50); Total Protein 5.9 g/dL (6.3-8.2)
[2025-09-14 07:54] VITALS: BP 178/79; PULSE 73; RESP 20; TEMP 97.9; O2SAT 97
[2025-09-14] MEDS: Mylicon 80MG PO ONE (09:39)
--- NOTE | 2025-09-14 10:16 | PCM.DS ---
Discharge Summary Date of Admission: 09/11/25 01:57 Date of Discharge: 09/14/25 Admitting Physician: HIRA ANDERS MD Consults: Consults on Case 09/13/25 09:13 Consult Ortho ROUTINE Primary Care Provider: HENRY DORAN Allergies Allergies etodolac [From Lodine] Allergy (Verified 09/10/25 21:08) Rash diphenhydramine HCl [From Benadryl] Adverse Reaction (Verified 09/10/25 21:08) SEE [facility] Summary - Hospital Course Hospital Course: Mr. Polanco is an 85-year-old male with a history of dementia, coronary artery disease, hypertension, type 2 diabetes, GERD, diverticulosis, and probable underlying cognitive decline who presented on 09/10/25 after an unwitnessed mechanical fall at home. He receives 20 hours of daily home nursing supervision, and during the two-hour period he was alone, he attempted to stand and fell directly onto his left shoulder. He denied head strike, loss of consciousness, headache, neck pain, chest pain, dizziness, or abdominal pain. His son at bedside described progressive weakness, multiple near-falls, worsening difficulty with ADLs, and concerns that he may no longer be safe at home. On arrival, vitals were stable. Labs revealed leukocytosis at 12.7, mild hyponatremia at 131, and an elevated alkaline phosphatase at 130. Imaging of the left shoulder including clavicle and humerus films demonstrated a minimally displaced distal clavicle fracture without humeral involvement, and neurovascular exam of the affected arm remained intact. Over the course of hospitalization, sodium improved slightly to 132 with hydration, WBC normalized to 8.3 by 09/12, and potassium initially dropped to 3.2 after IV fluids but corrected to 3.8 after supplementation. The patient continued to report global weakness and demonstrated difficulty with transfers and safe ambulation. He remained hemodynamically stable and denied dizziness, shortness of breath, chest pain, or abdominal pain throughout. Orthopedics reviewed the imaging and recommended conservative management: sling for comfort (though acceptable if he refuses), multimodal pain control, and initiation of gentle shoulder [id number] exercises as tolerated. PT/OT assessments are pending Saturday, with case management coordinating detention placement as both patient and family agree he cannot safely return home. He is medically stable for discharge pending acceptance to the SNF. Blood pressure remained elevated during admission, and amlodipine 5 mg daily was started with instructions for outpatient monitoring at SNF or by his primary provider. He was agreeable to discharge plans today, reporting left shoulder pain at 2/10 and otherwise without acute complaints. He is being discharged in stable condition to a detention facility for rehabilitation and 24-hour supervision once facility has accepted. - Vitals & Intake/Output Vital Signs: Vital Signs Temperature 97.9 F 09/14/25 07:54 Pulse Rate 73 09/14/25 07:54 Respiratory Rate 20 09/14/25 07:54 Blood Pressure 178/79 09/14/25 07:54 O2 Sat by Pulse Oximetry 97 09/14/25 07:54 Intake & Output: Intake & Output 09/11/25 09/12/25 09/13/25 09/14/25 11:59 11:59 11:59 11:59 Intake Total 575 115 7632 640 Balance 875 056 7627 640 Weight 81.1 kg 81.2 kg 81.6 kg - Lab Result Diagrams: 09/14/25 04:40 09/14/25 04:40 Lab Results-Last 24 Hrs: Lab Results-Last 24 Hours 09/13/25 09/14/25 09/14/25 Range/Units 15:10 04:40 04:40 WBC 6.0 (4.23-9.07) x10^3/uL RBC 4.77 (4.63-6.08) x10^6/uL Hgb 13.8 (13.7-17.5) g/dL Hct 41.4 (40.1-51.0) % MCV 86.8 (79.0-92.2) fL MCH 28.9 (25.7-32.2) pg MCHC 33.3 (32.3-36.5) g/dL RDW 16.7 H (11.6-14.4) % Plt Count 313 (163-337) x10^3/uL MPV 9.5 (9.4-12.4) fL Gran % 48.3 (34.0-67.9) % Immature Gran % (Auto) 0.2 (0.001-0.429) % Nucleat RBC Rel Count 0.0 (0.00-0.2) % Eos # (Auto) 0.23 (0.04-0.54) x10^3/uL Immature Gran # (Auto) 0.01 (0.001-0.031) x10^3u/L Absolute Lymphs (auto) 2.11 (1.32-3.57) x10^3/uL Absolute Monos (auto) 0.65 (0.30-0.82) x10^3/uL Absolute Nucleated RBC 0.00 (0.00-0.012) x10^3u/L Lymphocytes % 35.5 (21.8-53.1) % Monocytes % 10.9 (5.3-12.2) % Eosinophils % 3.9 (0.8-7.0) % Basophils % 1.2 (0.2-1.2) % Absolute Granulocytes 2.88 (1.78-5.38) x10^3/uL Basophils # 0.07 (0.01-0.08) x10^3/uL Sodium 132 L (135-145) mmol/L Potassium 4.0 D 3.7 (3.5-5.1) mmol/L Chloride 103 (98-107) mmol/L Carbon Dioxide 21 L (22-30) mmol/L Anion Gap 10.7 (5-15) MEQ/L BUN 13 (9-20) mg/dL Creatinine 0.91 (0.66-1.25) mg/dL Estimated GFR 82.1 ML/MIN Glucose 101 (74-106) mg/dL Calcium 8.1 L (8.4-10.2) mg/dL Total Bilirubin 0.90 (0.2-1.3) mg/dL AST 42 (17-59) U/L ALT 23 (0-50) U/L Alkaline Phosphatase 130 H (38-126) U/L Serum Total Protein 5.9 L (6.3-8.2) g/dL Albumin 3.2 L (3.5-5.0) g/dL Micro Results-Entire Visit: Accuchecks Date 09/14/25 - Radiology Exams Ordered Rad Exams-Entire Visit: Radiology Procedures Category Date Time Status CHEST 1 VIEW (PORTABLE) Urgent Exams 09/13/25 11:30 Completed - Procedures and Test Procedures and Tests throughout Hospitalization: Therapy Orders & Screens 09/11/25 02:04 PT Eval & Treat ( Order) ONCE Reason for Eval:: Frequent falls, weakness Diagnosis: Frequent falls, fracture left clavicle, weakness Discharge Exam General Appearance: no apparent distress, alert Neurologic Exam: alert, oriented x 3, cooperative, normal mood/affect, nml cerebellar function, sensation nml, No motor deficits Eye Exam: PERRL, EOMI, eyes nml inspection Ears, Nose, Throat Exam: normal ENT inspection, pharynx normal, moist mucous membranes Neck Exam: normal inspection, non-tender, supple, full range of motion Respiratory Exam: normal breath sounds, lungs clear, No respiratory distress Cardiovascular Exam: regular rate/rhythm, normal heart sounds Gastrointestinal/Abdomen Exam: soft, No tenderness, No mass Male Genitalia Exam: deferred Rectal Exam: deferred Back Exam: normal inspection, normal range of motion, No CVA tenderness, No vertebral tenderness Extremity Exam: normal inspection, normal range of motion Skin Exam: normal color, warm, dry Final Diagnosis/Problem List - Final Discharge Diagnosis/Problem (1) Fracture of left clavicle Current Visit: Yes Status: Acute Assessment & Plan: - X-ray confirmed a minimally displaced distal clavicle fracture; humerus films without additional injury; no neurovascular compromise. - Pain remains mild and well localized managed with Tylenol - Conservative management per ortho: sling for comfort (may decline), no lifting/overhead activity. - Start gentle ROM exercises as tolerated. - Continue multimodal pain control at SNF. - PT/OT for safe mobilization and strengthening. - Follow up with orthopedics in 23 weeks for repeat X-rays. 09/14 - Pt refusing sling as it was making him feel off balance, asked nurse to obtain clavicle strap if possible Code(s): S42.002A - FRACTURE OF UNSP PART OF LEFT CLAVICLE, INIT FOR CLOS FX (2) Hyponatremia Current Visit: Yes Status: Acute Assessment & Plan: - Na+ 132- mild- trend Code(s): E87.1 - HYPO-OSMOLALITY AND HYPONATREMIA (3) Physical deconditioning Current Visit: Yes Status: Acute Assessment & Plan: - Progressive weakness noted by patient and son; difficulty with ADLs; high fall risk. - Dementia contributes significantly to impaired judgment and unsafe mobility. - PT/OT evaluation anticipate daily therapy at SNF. - Case management coordinating SNF placement Code(s): R53.81 - OTHER MALAISE (4) HTN (hypertension) Current Visit: Yes Status: Acute Assessment & Plan: - Amlodipine 5 mg daily - Trend BP, today 1527/88- may need increased dose of med Code(s): I10 - ESSENTIAL (PRIMARY) HYPERTENSION (5) Constipation Current Visit: Yes Status: Acute Assessment & Plan: -Miralax ordered daily Code(s): K59.00 - CONSTIPATION, UNSPECIFIED (6) Abdominal gas pain Current Visit: Yes Status: Acute Assessment & Plan: Gas-x ordered Code(s): R14.1 - GAS PAIN (7) DMII (diabetes mellitus, type 2) Current Visit: Yes Status: Chronic Assessment & Plan: - ADA diet. 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 - SNF for 20/05 supervision, safety cues, structured environment. - CM working on placement arrangements Code(s): F03.90 - UNSP DEMENTIA, UNSP SEVERITY, WITHOUT BEH/PSYCH/MOOD/ANX (9) Hyperlipemia Current Visit: No Status: Chronic Assessment & Plan: - Labs from 12/22 reviewed - Discussed with pt's family and meds stopped per PCP- they would like to f/u with PCP to discuss if/when to restart meds. - Per family pt has had a hx of joint pain with statins and meds had to be adjusted in the past for this. Code(s): E78.5 - HYPERLIPIDEMIA, UNSPECIFIED (10) Hypokalemia Current Visit: Yes Status: Resolved Assessment & Plan: - resolved D/C plan of care time: > 35 minutes Code(s): E87.6 - HYPOKALEMIA - Discharge Discharge Date: 09/14/25 (rehab) Disposition: XFER OTHER Condition: Stable Prescriptions: New Carboxymethylcellulose Sodium [Artificial Tears 15 ML] 1 ml OP Q2HPRN PRN PRN Reason: DRY/ITCHY EYES Lidocaine HCl 5% Patch [Lidoderm Patch 5%] 2 patch TOP DAILY patch Amlodipine Besylate 5 mg [Norvasc 5 mg] 5 mg PO QAM tablet Acetaminophen 500 mg [Tylenol Extra Strength 500 mg] 1,000 mg PO Q6HPRN PRN tablet PRN Reason: Pain, Fever, Headache Continue Duloxetine HCl 30 mg PO DAILY Additional Instructions: Admit to SNF Diet: soft Up at tolerated with assist L arm sling as tolerated PT/OT eval and tx accucheck ac/hs F/U 2-3 weeks with ortho for repeat L clavicle x-rays See attached med list Follow up with: LAN PURDY MD [ACTIVE STAFF, ORTHOPEDICS] - 09/30/25 10:30 am
[2025-09-14] MEDS: Miralax Powder 17GM PACKET PO SCH (11:02)
== END 2025-09-14 11:40 ==
LOC: ED 20:54 → MED SURG 09-11 01:57
PROVIDERS: ADMIT Internal Medicine; ATTEND Internal Medicine
DX: S42.002A Fracture of unspecified part of left clavicle, initial encounter for closed fracture (principal); E87.1 Hypo-osmolality and hyponatremia; E87.6 Hypokalemia; F03.90 Unspecified dementia, unspecified severity, without behavioral disturbance, psychotic disturbance, mood disturbance, and anxiety; I25.10 Atherosclerotic heart disease of native coronary artery without angina pectoris; I10 Essential (primary) hypertension; E11.9 Type 2 diabetes mellitus without complications; K21.9 Gastro-esophageal reflux disease without esophagitis; W19.XXXA Unspecified fall, initial encounter; R53.81 Other malaise; E78.5 Hyperlipidemia, unspecified; K59.00 Constipation, unspecified; R14.1 Gas pain; Z79.899 Other long term (current) drug therapy
CPT/HCPCS: 36415; 71045; 73030; 73060; 80048; 80053; 81001; 82947; 83036; 83735; 83880; 84132; 84484; 85025; 94760; 96374; 96375; 97161; 97530; 99285; Q3014